=== PATIENT | female | born 1980 | race Caucasian/White ===

== ENCOUNTER 2017-01-20 08:36 | Observation (INO) | payer BC, OTHER ==
[~2017-01-20] VITALS: Ht 160 cm; Wt 81.9 kg
[~2017-01-20 08:36] MED LIST: GLIPIZIDE; METF-206 PO; PROC-14 PO
--- OUTSIDE RECORDS SUMMARY | 2017-01-20 08:41 | XMS REPORT | Referral Summary ---
Author Author [facility] Organization [facility] Address Unknown Phone Unavailable Care Team Providers Care Universal Branch Consultant Name Role Phone Alvin Fitzpatrick Primary Care Physician [phone] Encounter VC Date(s): 04/13/16 - 04/13/16 [facility], [address] [place] [address]- Discharge Disposition: 01-Home or Self Care Attending Physician: Sadia Wright APRN Admitting Physician: Sadia Wright APRN Vital Signs Most recent to 1 oldest [Reference Range]: Peripheral Pulse 88 bpm Rate [60-100 bpm] (04/13/16 10:41 AM) Blood Pressure 144/72 mmHg [90-140/60-90 mmHg] *HI* (04/13/16 10:41 AM) Problem List Condition Effective Dates Status Health Status Informant Anemia(Confirmed) 1998 Active Anxiety(Confirmed) Active Obesity(Confirmed) Active patient Type 2 diabetes Active mellitus(Confirmed) Allergies, Adverse Reactions, Alerts No Known Medication Allergies Medications Diflucan 150 mg oral tablet 150 mg 1 tabs, Oral, Daily, # 4 tabs, 0 Refill(s), Pharmacy: [facility], 1 tabs Oral Daily,x4 days Start Date: 03/16/16 Stop Date: 03/20/16 Status: Ordered glipiZIDE 5 mg oral tablet 5 mg 1 tabs, Oral, Daily, DX: E11.9, # 30 tabs, 1 Refill(s), Pharmacy: [facility], 1 tabs Oral Daily,Instr:DX: E11.9 Start Date: 03/23/16 Status: Ordered HumaLOG KwikPen 100 units/mL subcutaneous solution 15 units, SubCutaneous, TIDAC, dc novolog,DX: E11.9, # 15 mL, 0 Refill(s), Pharmacy: [facility], 15 units SubCutaneous TIDAC,x30 days,Instr:dc novolog,DX: E11.9 Start Date: 03/23/16 Stop Date: 04/22/16 Status: Ordered Insulin Pin Warren (DME) DME Item Inject insulin subq Pen Warren-per physician orders. 6 MIL. 31 GAUGE DX: E11.9, See Instructions, # 1 boxes, 1 Refill(s), Pharmacy: [facility], Inject insulin subq Pen Warren-per physician orders. 6 MIL. 31 GAUGE; DX: E11.9,... Start Date: 03/23/16 Status: Ordered Lantus Solostar Pen 100 units/mL subcutaneous solution 20 units, SubCutaneous, Bedtime (once a day), dc Levemir, try pen see if insurance will ok DX; E11.9, # 10 mL, 0 Refill(s), Pharmacy: [facility], 20 units SubCutaneous Bedtime (once a day),x30 days,Instr:dc Levemir, try pen see if insuran... Start Date: 03/23/16 Stop Date: 04/22/16 Status: Ordered Levemir 100 units/mL subcutaneous solution 20 units, SubCutaneous, Bedtime (once a day), DX: E11.9, # 10 mL, 1 Refill(s), Pharmacy: [facility], 20 units SubCutaneous Bedtime (once a day), x30 days,Instr:DX: E11.9 Start Date: 03/23/16 Stop Date: 05/22/16 Status: Ordered metFORMIN 500 mg oral tablet 500 mg 1 tabs, Oral, BID, dc order for 1000mg tab-ins. won't cover- Dx: E11.9 , # 60 tabs, 0 Refill(s), Pharmacy: [facility], 1 tabs Oral BID, Instr:dc order for 1000mg tab-ins. won't cover- ; Dx: E11.9 Start Date: 03/23/16 Status: Ordered Miscellaneous DME DME Item Freestyle Lite test strips. Box of 100. Use to test TID when taking insulin. Dx: (E11.9). Length of need: 99, See Instructions, # 1 boxes, 1 Refill( s), Pharmacy: [facility], Freestyle Lite test strips. Box of 100. Use to test TID... Start Date: 03/23/16 Status: Ordered Miscellaneous DME DME Item Freestyle lancets. Box of 100. Dx: (E11.9) Length of need: 99, See Instructions, # 1 boxes, 0 Refill(s), Pharmacy: [place] [address], Freestyle lancets. Box of 100. ; Dx: (E11.9) Length of need: 99, Supply Start Date: 08/17/15 Status: Ordered Miscellaneous DME DME Item Freestyle Lite test strips. Box of 100. Use once daily. Dx: (E11.9). Length of need: 99, See Instructions, # 1 boxes, 0 Refill(s), Pharmacy: [place] [address], Freestyle Lite test strips. Box of 100. Use once daily. Dx: (E11.9). Length o... Start Date: 08/17/15 Status: Ordered Miscellaneous DME DME Item Freestyle Lite meter to be used once daily. Dx: E11.9 Length of need : 99, See Instructions, # 1 Each, 0 Refill(s), Pharmacy: [place] [address] , Freestyle Lite meter to be used once daily. Dx: E11.9; Length of need: 99, Supply Start Date: 08/17/15 Status: Ordered NovoLOG FlexPen 100 units/mL subcutaneous solution 15 units, SubCutaneous, TIDAC, DX: E11.9, # 15 mL, 1 Refill(s), Pharmacy: [place] [address], 15 units SubCutaneous TIDAC,x30 days,Instr:DX: E11.9 Start Date: 03/23/16 Stop Date: 05/22/16 Status: Ordered Zofran ODT 4 mg oral tablet, disintegrating 4 mg 1 tabs, Oral, q6hr, as needed for nausea/vomiting, 0 Refill(s) Start Date: 03/14/16 Status: Ordered Results No data available for this section Immunizations No data available for this section Procedures Procedure Date Related Diagnosis Body Site section 04/26/09 D&C for miscarriage 2003 Social History Social History Type Response Smoking Status Never smoker Assessment and Plan No data available for this section
--- OUTSIDE RECORDS SUMMARY | 2017-01-20 08:41 | XMS REPORT | Referral Summary ---
Author Author [facility] Organization [facility] Address Unknown Phone Unavailable Care Team Providers Care Tightener Name Role Phone Alvin Fitzpatrick Primary Care Physician [phone] Encounter Date(s): 08/24/15 - 08/24/15 [facility], [address] [place] [id number] Discharge Diagnosis: Surveillance of intrauterine contraceptive device Discharge Diagnosis: Pap smear for cervical cancer screening Discharge Diagnosis: Female stress incontinence Discharge Diagnosis: [place] vaginitis Discharge Disposition: 01-Home or Self Care Attending Physician: Sadia Wright APRN Admitting Physician: Sadia Wright APRN Vital Signs Most recent to 1 oldest [Reference Range]: Peripheral Pulse 76 bpm Rate [60-100 bpm] (08/24/15 2:11 PM) Blood Pressure 126/64 mmHg [90-140/60-90 mmHg] (08/24/15 2:11 PM) Problem List Condition Effective Dates Status Health Status Informant Obesity(Confirmed) Active patient Type 2 diabetes Active mellitus(Confirmed) Allergies, Adverse Reactions, Alerts No Known Medication Allergies Medications Cranberry oral tablet 500 mg, 0 Refill(s) Start Date: 08/24/15 Status: Ordered Diflucan 150 mg oral tablet 150 mg 1 tabs, Oral, qWeek, # 2 tabs, 0 Refill(s), Pharmacy: [facility], 1 tabs Oral qWeek Start Date: 08/24/15 Stop Date: 08/31/15 Status: Ordered glipiZIDE 5 mg oral tablet 5 mg 1 tabs, Oral, Daily, # 30 tabs, 0 Refill(s), Pharmacy: [facility], 1 tabs Oral Daily Start Date: 08/17/15 Status: Ordered metFORMIN 500 mg oral tablet, extended release 1,000 mg 2 tabs, Oral, Daily, # 60 tabs, 0 Refill(s), Pharmacy: [facility], 2 tabs Oral Daily Start Date: 08/17/15 Status: Ordered Miscellaneous DME DME Item Freestyle lancets. Box of 100. Dx: (E11.9) Length of need: 99, See Instructions, # 1 boxes, 0 Refill(s), Pharmacy: [facility], Freestyle lancets. Box of 100. ; Dx: (E11.9) Length of need: 99, Supply Start Date: 08/17/15 Status: Ordered Miscellaneous DME DME Item Freestyle Lite test strips. Box of 100. Use once daily. Dx: (E11.9). Length of need: 99, See Instructions, # 1 boxes, 0 Refill(s), Pharmacy: [facility], Freestyle Lite test strips. Box of 100. Use once daily. Dx: (E11.9). Length o... Start Date: 08/17/15 Status: Ordered Miscellaneous DME DME Item Freestyle Lite meter to be used once daily. Dx: E11.9 Length of need : 99, See Instructions, # 1 Each, 0 Refill(s), Pharmacy: [facility] , Freestyle Lite meter to be used once daily. Dx: E11.9; Length of need: 99, Supply Start Date: 08/17/15 Status: Ordered Results No data available for this section Immunizations No data available for this section Procedures No data available for this section Social History Social History Type Response Smoking Status Never smoker Assessment and Plan No data available for this section
--- OUTSIDE RECORDS SUMMARY | 2017-01-20 08:41 | XMS REPORT | Referral Summary ---
Author Author [facility] Organization [facility] Address Unknown Phone Unavailable Care Team Providers Care Electrophonic Engineer Name Role Phone Alvin Fitzpatrick Primary Care Physician [phone] Encounter [facility] [id number] Date(s): 08/17/15 - 08/17/15 [facility], [address] [place] [address]- Discharge Diagnosis: Type 2 diabetes mellitus Discharge Diagnosis: Excessive weight gain Discharge Diagnosis: Stress incontinence Discharge Diagnosis: Dysuria Discharge Diagnosis: Dysuria Discharge Diagnosis: Excessive weight gain Discharge Disposition: 01-Home or Self Care Attending Physician: Anne Basilio PA-C Vital Signs Most recent to 1 oldest [Reference Range]: Temperature Tympanic 37.4 degC [36.6-38.1 degC] (08/17/15 4:17 PM) Peripheral Pulse 80 bpm Rate [60-100 bpm] (08/17/15 4:17 PM) Respiratory Rate 20 br/min [14-20 br/min] (08/17/15 4:17 PM) Blood Pressure 118/68 mmHg [90-140/60-90 mmHg] (08/17/15 4:17 PM) Problem List Condition Effective Dates Status Health Status Informant Obesity(Confirmed) Active patient Type 2 diabetes Active mellitus(Confirmed) Allergies, Adverse Reactions, Alerts No Known Medication Allergies Medications glipiZIDE 5 mg oral tablet 5 mg 1 tabs, Oral, Daily, # 30 tabs, 0 Refill(s), Pharmacy: [facility], 1 tabs Oral Daily Start Date: 08/17/15 Status: Ordered metFORMIN 500 mg oral tablet, extended release 1,000 mg 2 tabs, Oral, Daily, # 60 tabs, 0 Refill(s), Pharmacy: [facility], 2 tabs Oral Daily Start Date: 08/17/15 Status: Ordered Miscellaneous DME DME Item Freestyle lancets. Box of 100. Dx: (E11.9) Length of need: 99, See Instructions, # 1 boxes, 0 Refill(s), Pharmacy: [facility], Freestyle lancets. Box of 100. ; Dx: (E11.9) Length of need: 99, Supply Start Date: 08/17/15 Status: Ordered Miscellaneous DME DME Item Freestyle Lite test strips. Box of 100. Use once daily. Dx: (E11.9). Length of need: 99, See Instructions, # 1 boxes, 0 Refill(s), Pharmacy: [facility], Freestyle Lite test strips. Box of 100. Use once daily. Dx: (E11.9). Length o... Start Date: 08/17/15 Status: Ordered Miscellaneous DME DME Item Freestyle Lite meter to be used once daily. Dx: E11.9 Length of need : 99, See Instructions, # 1 Each, 0 Refill(s), Pharmacy: [facility] , Freestyle Lite meter to be used once daily. Dx: E11.9; Length of need: 99, Supply Start Date: 08/17/15 Status: Ordered Results Chemistry Most recent to 1 oldest [Reference Range]: Sodium Lvl [135-144 137 mEq/L mEq/L] (08/17/15 5:00 PM) Potassium Lvl 4.3 mEq/L [3.5-5.2 mEq/L] (08/17/15 5:00 PM) Chloride [99-111 104 mEq/L mEq/L] (08/17/15 5:00 PM) CO2 [22-31 mEq/L] 22 mEq/L (08/17/15 5:00 PM) AGAP [3-20] 11 (08/17/15 5:00 PM) BUN [7-19 mg/dL] 10 mg/dL (08/17/15 5:00 PM) Glucose Lvl [70-99 264 mg/dL mg/dL] *HI* (08/17/15 5:00 PM) Creatinine Lvl 0.63 mg/dL [0.57-1.11 mg/dL] (08/17/15 5:00 PM) eGFR [>60 mL/min] >60 mL/min 1 (08/17/15 5:00 PM) Calcium Lvl 9.5 mg/dL [8.9-10.5 mg/dL] (08/17/15 5:00 PM) Albumin Lvl [3.5-5.0 4.1 gm/dL gm/dL] (08/17/15 5:00 PM) Total Protein 7.4 gm/dL [6.4-8.3 gm/dL] (08/17/15 5:00 PM) Globulin [1.8-4.0 3.3 gm/dL gm/dL] (08/17/15 5:00 PM) ALT [0-55 U/L] 21 U/L (08/17/15 5:00 PM) AST [5-34 U/L] 16 U/L (08/17/15 5:00 PM) Alk Phos [40-150 106 U/L U/L] (08/17/15 5:00 PM) Bili Total [0.2-1.2 0.4 mg/dL mg/dL] (08/17/15 5:00 PM) TSH with Reflex Free 1.39 T4 [0.35-4.94] (08/17/15 5:00 PM) Hgb A1c [4.1-5.6 %] 11.5 % *HI* (08/17/15 5:00 PM) eAvg Glucose 283.4 mg/dL (08/17/15 5:00 PM) 1Result Comment: Multiply eGFR results by 1.21 for race. Urinalysis Most recent to 1 oldest [Reference Range]: UA Color Yellow (08/17/15 5:02 PM) UA Appear Clear (08/17/15 5:02 PM) UA pH [5.0-8.0] 5.5 (08/17/15 5:02 PM) UA Leuk Est Negative [Negative] (08/17/15 5:02 PM) UA Nitrite Negative [Negative] (08/17/15 5:02 PM) UA Protein Negative [Negative] (08/17/15 5:02 PM) UA Glucose Pos 3+ [Negative] *ABN* (08/17/15 5:02 PM) UA Ketones Pos 3+ [Negative] *ABN* (08/17/15 5:02 PM) UA Urobilinogen 0.2 mg/dL [<1.0 mg/dL] (08/17/15 5:02 PM) UA Bili [Negative] Negative (08/17/15 5:02 PM) UA Blood [Negative] Negative (08/17/15 5:02 PM) UA Spec Grav 1.039 [1.003-1.030] *HI* (08/17/15 5:02 PM) Type Clean Catch (08/17/15 5:02 PM) Immunizations No data available for this section Procedures Procedure Date Related Diagnosis Body Site Collection of venous blood by venipuncture 08/17/15 Social History Social History Type Response Smoking Status Never smoker Assessment and Plan Extracted from: Title: Office Visit Note Author: Anne Basilio PA-C Date: 08/17/15 Assessment/Plan Dysuria, Dysuria Will check UA today, and if UTI, will send in abx. Will notify pt of results. Ordered: Office Visit Level 4 Est 57225 Excessive weight gain, Excessive weight gain Will also check TSH today. She thinks that the level was off in the past. Will treat if needed. Ordered: Office Visit Level 4 Est 23530 Stress incontinence I gave her handouts to try Kegel exercises. I think if we get her diabetes under control, she may not have as many issues with this. Again, will check UA today. Ordered: Office Visit Level 4 Est 22276 Type 2 diabetes mellitus I spent about 30 minutes discussing with the pt the importance of getting her diabetes undercontrol. She initiallywanted to be referred to an utility system operator because that is whoshe has seen before. D/w her that we canstart the work up here, and ifwe have trouble, then we can send her. Will start with labfor a starting point. Will start with Metformin extended release totry andprevent stomach upset. She prefers taking the 500mg tabs, soshe will take 2 of these once a day. Will alsotry Glipizide. I don't know if thiswill work for her, but will give it a try. Will also call in glucometer for her, and just have her check fasting sugar for now. I had a reynoso discussion with her that we can give her all the medications, but she needs to take her health seriously, and actuallytake the medicine. I advised that she needs to start exercising and watching her diet.We can send her to counseling again ifwe need to, but she already knows the diet she needs to have. Try cutting out sugars, and cutting back on carbs for now. Also try cutting back portion sizes. Will call with results, and will definitely need follow up andmost likely further medication changes. Pt voices understanding. Ordered: Comprehensive Metabolic Panel Hemoglobin A1c Office Visit Level 4 Est 21258 TSH with Reflex Free T4 Urinalysis with Culture if Indicated Orders: [facility] [facility] Equipment Rx, DME Item Freestyle lancets. Box of 100. Dx: (E11.9) Length of need: 99, See Instructions, # 1 boxes, 0 Refill(s), Pharmacy: [facility], Freestyle lancets. Box of 100. ; Dx: (E11.9) Length of need: 99, Supply Durable Medical Equipment Rx, DME Item Freestyle Lite test strips. Box of 100. Use once daily. Dx: (E11.9). Length of need: 99, See Instructions, # 1 boxes, 0 Refill(s), Pharmacy: [facility], Freestyle Lite test strips. Box of 100. Use once daily. Dx: (E11.9). Length o... Durable Medical Equipment Rx, DME Item Freestyle Lite meter to be used once daily. Dx: E11.9 Length of need: 99, See Instructions, # 1 Each, 0 Refill(s), Pharmacy: [facility], Freestyle Lite meter to be used once daily. Dx : E11.9; Length of need: 99, Supply glipiZIDE, 5 mg 1 tabs, Oral, Daily, # 30 tabs, 0 Refill(s), Pharmacy: [facility], 1 tabs Oral Daily metFORMIN, 1,000 mg 2 tabs, Oral, Daily, # 60 tabs, 0 Refill(s), Pharmacy: [facility], 2 tabs Oral Daily Extracted from: Title: Ambulatory Patient Education Author: Anne Basilio PA-C Date : 08/17/15 Family Medicine Kegel Exercises The goal of Kegel exercises is to isolate and exercise your pelvic floor muscles. These muscles act as a hammock that supports the rectum, vagina, small intestine, and uterus. As the muscles weaken, the hammock sags and these organs are displaced from their normal positions. Kegel exercises can strengthen your pelvic floor muscles and help you to improve bladder and bowel control, improve sexual response, and help reduce many problems and some discomfort during . Kegel exercises can be done anywhere and at any time. HOW TO PERFORM KEGEL EXERCISES 1. Locate your pelvic floor muscles. To do this, squeeze (contract) the muscles that you use when you try to stop the flow of urine. You will feel a tightness in the vaginal area (women) and a tight lift in the rectal area (men and women). 2. When you begin, contract your pelvic muscles tight for 25 seconds, then relax them for 25 seconds. This is one set. Do 45 sets with a short pause in between. 3. Contract your pelvic muscles for 810 seconds, then relax them for 8 10 seconds. Do 45 sets. If you cannot contract your pelvic muscles for 8 10 seconds, try 57 seconds and work your way up to 810 seconds. Your goal is 45 sets of 10 contractions each day. Keep your stomach, buttocks, and legs relaxed during the exercises. Perform sets of both short and long contractions. Vary your positions. Perform these contractions 34 times per day. Perform sets while you are: Lying in bed in the morning. Standing at lunch. Sitting in the late afternoon. Lying in bed at night. You should do 4050 contractions per day. Do not perform more Kegel exercises per day than recommended. Overexercising can cause muscle fatigue. Continue these exercises for for at least 1520 weeks or as directed by your caregiver. Document Released: 09/16/2013 Document Reviewed: 09/16/2013 ExitCare Patient Information 2015 [employer]. This information is not intended to replace advice given to you by your health care provider. Make sure you discuss any questions you have with your health care provider. No follow up information was provided.
--- OUTSIDE RECORDS SUMMARY | 2017-01-20 08:41 | XMS REPORT | Referral Summary ---
Author Author [facility] Organization [facility] Address Unknown Phone Unavailable Care Team Providers Care Merchandise Planner Name Role Phone Alvin Fitzpatrick Primary Care Physician [phone] Encounter [facility] Date(s): 10/28/15 - 10/28/15 [facility] [address] [place] [address] [place] [address] Discharge Diagnosis: Urinary, incontinence, stress female Discharge Diagnosis: Type II diabetes mellitus Discharge Diagnosis: Obesity Discharge Diagnosis: Yeast infection of the vagina Discharge Diagnosis: Urinary incontinence Discharge Disposition: -Home or Self Care Attending Physician: Hiram Wright JR, MD Admitting Physician: Hiram Wright JR, MD Referring Physician: Marquise Fitzpatrick MD Vital Signs Most recent to 1 oldest [Reference Range]: Peripheral Pulse 90 bpm Rate [60-100 bpm] (10/28/15 4:03 PM) Blood Pressure 122/80 mmHg [90-140/60-90 mmHg] (10/28/15 4:03 PM) Problem List Condition Effective Dates Status Health Status Informant Anemia(Confirmed) 1998 Active Anxiety(Confirmed) Active Obesity(Confirmed) Active patient Type 2 diabetes Active mellitus(Confirmed) Allergies, Adverse Reactions, Alerts No Known Medication Allergies Medications Cranberry oral tablet 500 mg, 0 Refill(s) Start Date: 08/24/15 Status: Ordered glipiZIDE 5 mg oral tablet 5 mg 1 tabs, Oral, Daily, # 30 tabs, 0 Refill(s), Pharmacy: [facility], 1 tabs Oral Daily Start Date: 09/20/15 Status: Ordered metFORMIN 500 mg oral tablet, extended release 1,000 mg 2 tabs, Oral, Daily, # 60 tabs, 0 Refill(s), Pharmacy: [facility], 2 tabs Oral Daily Start Date: 09/20/15 Status: Ordered Miscellaneous DME DME Item Freestyle lancets. Box of 100. Dx: (E11.9) Length of need: 99, See Instructions, # 1 boxes, 0 Refill(s), Pharmacy: [facility]28, Freestyle lancets. Box of 100. ; Dx: (E11.9) Length of need: 99, Supply Start Date: 08/17/15 Status: Ordered Miscellaneous DME DME Item Freestyle Lite test strips. Box of 100. Use once daily. Dx: (E11.9). Length of need: 99, See Instructions, # 1 boxes, 0 Refill(s), Pharmacy: [facility], Freestyle Lite test strips. Box of 100. Use once daily. Dx: (E11.9). Length o... Start Date: 08/17/15 Status: Ordered Miscellaneous DME DME Item Freestyle Lite meter to be used once daily. Dx: E11.9 Length of need : 99, See Instructions, # 1 Each, 0 Refill(s), Pharmacy: [place] [address] , Freestyle Lite meter to be used once daily. Dx: E11.9; Length of need: 99, Supply Start Date: 08/17/15 Status: Ordered oxybutynin 5 mg oral tablet 5 mg 1 tabs, Oral, TID, # 180 tabs, 3 Refill(s), Pharmacy: [facility], 1 tabs Oral TID Start Date: 10/28/15 Status: Ordered Results Urinalysis Most recent to 1 oldest [Reference Range]: UA Color Yellow (10/28/15 4:00 PM) UA Appear Clear (10/28/15 4:00 PM) UA pH [5.0-8.0] 5.0 (10/28/15 4:00 PM) UA Leuk Est Trace [Negative] *ABN* (10/28/15 4:00 PM) UA Nitrite Negative [Negative] (10/28/15 4:00 PM) UA Protein Negative [Negative] (10/28/15 4:00 PM) UA Glucose Pos 2+ [Negative] *ABN* (10/28/15 4:00 PM) UA Ketones Pos 3+ 1 [Negative] (10/28/15 4:00 PM) UA Urobilinogen 0.2 mg/dL [<=1.0 mg/dL] (10/28/15 4:00 PM) UA Bili [Negative] Negative (10/28/15 4:00 PM) UA Blood [Negative] Trace *ABN* (10/28/15 4:00 PM) UA Spec Grav 1.010 [1.003-1.030] (10/28/15 4:00 PM) Type Clean Catch (10/28/15 4:00 PM) UA WBC [0-4] 5-10 *ABN* (10/28/15 4:00 PM) UA RBC [0-2] 2-5 (10/28/15 4:00 PM) Epithelial Cells 0-2 (10/28/15 4:00 PM) UA Bacteria Occasional *ABN* (10/28/15 4:00 PM) 1Result Comment: Result verified by repeat analysis and called to Cristhian by [facility] 16:10 Immunizations No data available for this section Procedures Procedure Date Related Diagnosis Body Site section 04/26/09 D&C for miscarriage 2003 Social History Social History Type Response Smoking Status Never smoker Assessment and Plan Extracted from: Title: Ambulatory Patient Education Author: Hiram Wright JR, MD Date : 10/28/15 Follow Up With: Where: When: Marquise Fitzpatrick [address] [place] [address] Drive; [place] [address] Business (1) Within 3 to 5 days Comments: Follow Up With: Where: When: Sadia Wright In 6 weeks 12/09/2015 Comments: Extracted from: Title: Office Visit Note Author: Hiram Wright JR, MD Date: 10/28/15 Assessment/Plan 1.Urinary, incontinence, stress female Patient instructedhow to do Kegel 's pelvic floor exercises 4 times an hour while awake. Discontinuecranberry pill. Patient will be started onOxybutynin 5 mg 3 times a day. Prescription called. Recheck in my office in 6 weeks Patient was alsocounseled aboutavoidingcaffeine and highly spiced and highly acidic food. 2.Type II diabetes mellitus Patient is being sent to the immediate care unitformanagementof type II diabetes mellitus Urinalysisdone today showed3+ kitten on the urinalysis 3.Obesity Patient said she had lost 10 poundsalready lately 4.Yeast infection of the vagina Continue [id number] mg once a week for the yeast infection of the vagina. Ordered: Office Visit Level 4 New [address] Urinary incontinence Orders: oxybutynin, 5 mg 1 tabs, Oral, TID, # 180 tabs, 3 Refill(s), Pharmacy : [facility], 1 tabs Oral TID Extracted from: Title: Ketones Author: Cristhian Castaneda RN Date: 10/28/15 Received call from lab - 3+ ketones in Urine. I notified of this finding.
--- OUTSIDE RECORDS SUMMARY | 2017-01-20 08:41 | XMS REPORT | Referral Summary ---
Author Author [facility], Family Medicine Organization [facility], Family [facility] Address Unknown Phone Unavailable Care Team Providers Care New Accounts Representative Name Role Phone Alvin Fitzpatrick Primary Care Physician [phone] Encounter VC Date(s): 08/30/15 - 08/30/15 [facility], [address] [place] [id number] Discharge Diagnosis: Contraceptive management Discharge Disposition: 01-Home or Self Care Attending Physician: Sadia Wright APRN Admitting Physician: Sadia Wright APRN Vital Signs Most recent to 1 oldest [Reference Range]: Peripheral Pulse 76 bpm Rate [60-100 bpm] (08/30/15 8:41 AM) Blood Pressure 126/64 mmHg [90-140/60-90 mmHg] (08/30/15 8:41 AM) Problem List Condition Effective Dates Status Health Status Informant Anemia(Confirmed) 1998 Active Anxiety(Confirmed) Active Obesity(Confirmed) Active patient Type 2 diabetes Active mellitus(Confirmed) Allergies, Adverse Reactions, Alerts No Known Medication Allergies Medications Cranberry oral tablet 500 mg, 0 Refill(s) Start Date: 08/24/15 Status: Ordered Diflucan 150 mg oral tablet 150 mg 1 tabs, Oral, qWeek, # 2 tabs, 0 Refill(s), Pharmacy: [facility], 1 tabs Oral qWeek Start Date: 08/24/15 Stop Date: 08/31/15 Status: Ordered glipiZIDE 5 mg oral tablet 5 mg 1 tabs, Oral, Daily, # 30 tabs, 0 Refill(s), Pharmacy: [facility], 1 tabs Oral Daily Start Date: 08/17/15 Status: Ordered metFORMIN 500 mg oral tablet, extended release 1,000 mg 2 tabs, Oral, Daily, # 60 tabs, 0 Refill(s), Pharmacy: [facility], 2 tabs Oral Daily Start Date: 08/17/15 Status: Ordered Miscellaneous DME DME Item Freestyle lancets. Box of 100. Dx: (E11.9) Length of need: 99, See Instructions, # 1 boxes, 0 Refill(s), Pharmacy: [facility], Freestyle lancets. Box of 100. ; Dx: (E11.9) Length of need: 99, Supply Start Date: 08/17/15 Status: Ordered Miscellaneous DME DME Item Freestyle Lite test strips. Box of 100. Use once daily. Dx: (E11.9). Length of need: 99, See Instructions, # 1 boxes, 0 Refill(s), Pharmacy: [facility], Freestyle Lite test strips. Box of 100. Use once daily. Dx: (E11.9). Length o... Start Date: 08/17/15 Status: Ordered Miscellaneous DME DME Item Freestyle Lite meter to be used once daily. Dx: E11.9 Length of need : 99, See Instructions, # 1 Each, 0 Refill(s), Pharmacy: [facility] , Freestyle Lite meter to be used once daily. Dx: E11.9; Length of need: 99, Supply Start Date: 08/17/15 Status: Ordered Results Chemistry Most recent to 1 oldest [Reference Range]: U Beta hCG Ql Negative [Negative] (08/30/15 8:30 AM) Immunizations No data available for this section Procedures Procedure Date Related Diagnosis Body Site section 04/26/09 D&C for miscarriage 2003 Social History Social History Type Response Smoking Status Never smoker Assessment and Plan No data available for this section
--- OUTSIDE RECORDS SUMMARY | 2017-01-20 08:41 | XMS REPORT | Referral Summary ---
Author Author [facility], [facility] Medicine Organization [facility], [facility] Address Unknown Phone Unavailable Care Team Providers Care Acting Section Chief Name Role Phone Alvin Fitzpatrick Primary Care Physician [phone] Encounter VC Date(s): 03/16/16 - 03/16/16 [facility], [address] [place] [id number] Discharge Disposition: 01-Home or Self Care Attending Physician: Marquise Fitzpatrick MD Admitting Physician: Marquise Fitzpatrick MD Vital Signs Most recent to 1 oldest [Reference Range]: Blood Pressure 126/74 mmHg [90-140/60-90 mmHg] (03/16/16 11:11 AM) Problem List Condition Effective Dates Status Health Status Informant Anemia(Confirmed) 1998 Active Anxiety(Confirmed) Active Obesity(Confirmed) Active patient Type 2 diabetes Active mellitus(Confirmed) Allergies, Adverse Reactions, Alerts No Known Medication Allergies Medications Diflucan 150 mg oral tablet 150 mg 1 tabs, Oral, Daily, # 4 tabs, 0 Refill(s), Pharmacy: [facility], 1 tabs Oral Daily,x4 days Start Date: 03/16/16 Stop Date: 03/20/16 Status: Ordered glipiZIDE 5 mg oral tablet 5 mg 1 tabs, Oral, Daily, # 30 tabs, 2 Refill(s), Pharmacy: [facility], 1 tabs Oral Daily Start Date: 10/31/15 Status: Ordered Insulin Pin [place] (DME) DME Item Inject insulin subq per physician orders. 6 MIL. 31 GAUGE DX: E11.9, See Instructions, # 1 Each, 0 Refill(s), Pharmacy: [facility], Inject insulin subq per physician orders. 6 MIL. 31 GAUGE; DX: E11.9, Supply Start Date: 11/01/15 Status: Ordered Levemir 10 units, SubCutaneous, Bedtime (once a day), 0 Refill(s) Start Date: 03/16/16 Status: Ordered metFORMIN 1000 mg oral tablet, extended release 1,000 mg 1 tabs, Oral, Daily, # 30 tabs, 3 Refill(s), Pharmacy: [facility] [id number], 1 tabs Oral Daily Start Date: 10/31/15 Status: Ordered Miscellaneous DME DME Item Freestyle Lite test strips. Box of 100. Use to test TID when taking insulin. Dx: (E11.9). Length of need: 99, See Instructions, # 1 boxes, 3 Refill( s), Pharmacy: [facility] [address], Freestyle Lite test strips. Box of 100. Use to test TID... Start Date: 03/16/16 Status: Ordered Miscellaneous DME DME Item Freestyle lancets. Box of 100. Dx: (E11.9) Length of need: 99, See Instructions, # 1 boxes, 0 Refill(s), Pharmacy: [facility] [address], Freestyle lancets. Box of 100. ; Dx: (E11.9) Length of need: 99, Supply Start Date: 08/17/15 Status: Ordered Miscellaneous DME DME Item Freestyle Lite test strips. Box of 100. Use once daily. Dx: (E11.9). Length of need: 99, See Instructions, # 1 boxes, 0 Refill(s), Pharmacy: [place] [facility] [id number], Freestyle Lite test strips. Box of 100. Use once daily. Dx: (E11.9). Length o... Start Date: 08/17/15 Status: Ordered Miscellaneous DME DME Item Freestyle Lite meter to be used once daily. Dx: E11.9 Length of need : 99, See Instructions, # 1 Each, 0 Refill(s), Pharmacy: [facility] [address] , Freestyle Lite meter to be used once daily. Dx: E11.9; Length of need: 99, Supply Start Date: 08/17/15 Status: Ordered NovoLOG FlexPen 4 units, SubCutaneous, TIDAC, 0 Refill(s) Start Date: 03/16/16 Status: Ordered Zofran ODT 4 mg oral [...]
--- OUTSIDE RECORDS SUMMARY | 2017-01-20 08:41 | XMS REPORT | Referral Summary ---
Author Author [facility], [facility] Medicine Organization [facility] Address Unknown Phone Unavailable Care Team Providers Care Yarn Examiner Skeins Name Role Phone Alvin Fitzpatrick Primary Care Physician [phone] Encounter VC Date(s): 03/14/16 - 03/14/16 [facility], [address] [place] [address]- Discharge Disposition: 01-Home or Self Care Attending Physician: Marquise Fitzpatrick MD Admitting Physician: Marquise Fitzpatrick MD Vital Signs Most recent to 1 oldest [Reference Range]: Blood Pressure 114/70 mmHg [90-140/60-90 mmHg] (03/14/16 2:21 PM) Problem List Condition Effective Dates Status Health Status Informant Anemia(Confirmed) 1998 Active Anxiety(Confirmed) Active Obesity(Confirmed) Active patient Type 2 diabetes Active mellitus(Confirmed) Allergies, Adverse Reactions, Alerts No Known Medication Allergies Medications glipiZIDE 5 mg oral tablet 5 mg 1 tabs, Oral, Daily, # 30 tabs, 2 Refill(s), Pharmacy: [id number], 1 tabs Oral Daily Start Date: 10/31/15 Status: Ordered Insulin [place] (DME) DME Item Inject insulin subq per physician orders. 6 MIL. 31 GAUGE DX: E11.9, See Instructions, # 1 Each, 0 Refill(s), Pharmacy: [facility], Inject insulin subq per physician orders. 6 MIL. 31 GAUGE; DX: E11.9, Supply Start Date: 11/01/15 Status: Ordered metFORMIN 1000 mg oral tablet, extended release 1,000 mg 1 tabs, Oral, Daily, # 30 tabs, 3 Refill(s), Pharmacy: [facility], 1 tabs Oral Daily Start Date: 10/31/15 Status: Ordered Miscellaneous DME DME Item Freestyle lancets. Box of 100. Dx: (E11.9) Length of need: 99, See Instructions, # 1 boxes, 0 Refill(s), Pharmacy: [facility], Freestyle lancets. Box of 100. ; Dx: (E11.9) Length of need: 99, Supply Start Date: 08/17/15 Status: Ordered Miscellaneous DME DME Item Freestyle Lite test strips. Box of 100. Use once daily. Dx: (E11.9). Length of need: 99, See Instructions, # 1 boxes, 0 Refill(s), Pharmacy: [facility], Freestyle Lite test strips. Box of 100. Use once daily. Dx: (E11.9). Length o... Start Date: 08/17/15 Status: Ordered Miscellaneous DME DME Item Freestyle Lite meter to be used once daily. Dx: E11.9 Length of need : 99, See Instructions, # 1 Each, 0 Refill(s), Pharmacy: [facility] , Freestyle Lite meter to be used once daily. Dx: E11.9; Length of need: 99, Supply Start Date: 08/17/15 Status: Ordered Zofran ODT 4 mg oral tablet, disintegrating 4 mg 1 tabs, Oral, q6hr, as needed for nausea/vomiting, 0 Refill(s) Start Date: 03/14/16 Status: Ordered Results Chemistry Most recent to 1 oldest [Reference Range]: Sodium Venous 139 mmol/L [136-145 mmol/L] (03/14/16 3:32 PM) Potassium Venous 3.4 mmol/L 1 [3.5-5.1 mmol/L] *LOW* (03/14/16 3:32 PM) Calcium Ionized 1.16 mmol/L Venous [1.10-1.30 (03/14/16 3:32 PM) mmol/L] Total CO2 Venous 23 mmol/L [24-29 mmol/L] *LOW* (03/14/16 3:32 PM) Glucose Venous 282 mg/dL [70-100 mg/dL] *HI* (03/14/16 3:32 PM) BUN Venous [8-26] <3 *LOW* (03/14/16 3:32 PM) Creatinine Venous 0.4 mg/dL [0.6-1.2 mg/dL] *LOW* (03/14/16 3:32 PM) Venous CL [98-109 101 mmol/L mmol/L] (03/14/16 3:32 PM) 1Result Comment: This test was performed on a whole blood specimen. The presence or absence of hemolysis cannot be assessed. Hemolysis can falsely elevate potassium levels. Normals are for venous specimens only. Immunizations No data available for this section Procedures Procedure Date Related Diagnosis Body Site Collection of venous blood by venipuncture 03/14/16 section 04/26/09 D&C for miscarriage 2003 Social History Social History Type Response Smoking Status Never smoker Assessment and Plan Extracted from: Title: Ambulatory Patient Education Author: Marquise Fitzpatrick MD Date: 03/14 Emergency Medicine Abdominal Pain Many things can cause abdominal pain. Usually, abdominal pain is not caused by a disease and will improve without treatment. It can often be observed and treated at home. Your health care provider will do a physical exam and possibly order blood tests and X-rays to help determine the seriousness of your pain. However, in many cases, more time must pass before a clear cause of the pain can be found. Before that point, your health care provider may not know if you need more testing or further treatment. HOME CARE INSTRUCTIONS Monitor your abdominal pain for any changes. The following actions may help to alleviate any discomfort you are experiencing: Only take ddmo-alr-yrlqzli or prescription medicines as directed by your health care provider. Do not take laxatives unless directed to do so by your health care provider. Try a clear liquid diet (broth, tea, or water) as directed by your health care provider. Slowly move to a bland diet as tolerated. SEEK MEDICAL CARE IF: You have unexplained abdominal pain. You have abdominal pain associated with nausea or diarrhea. You have pain when you urinate or have a bowel movement. You experience abdominal pain that wakes you in the night. You have abdominal pain that is worsened or improved by eating food. You have abdominal pain that is worsened with eating fatty foods. You have a fever. SEEK IMMEDIATE MEDICAL CARE IF: Your pain does not go away within 2 hours. You keep throwing up (vomiting). Your pain is felt only in portions of the abdomen, such as the right side or the left lower portion of the abdomen. You pass bloody or black tarry stools. MAKE SURE YOU: Understand these instructions. Will watch your condition. Will get help right away if you are not doing well or get worse. This information is not intended to replace advice given to you by your health care provider. Make sure you discuss any questions you have with your health care provider. Document Released: 07/10/2006 Document Revised: 10/05/2014 Document Reviewed: [facility] Patient Information 2015 [employer]. Family Medicine Blood Glucose Monitoring Monitoring your blood glucose (also know as blood sugar) helps you to manage your diabetes. It also helps you and your health care provider monitor your diabetes and determine how well your treatment plan is working. WHY SHOULD YOU MONITOR YOUR BLOOD GLUCOSE? It can help you understand how food, exercise, and medicine affect your blood glucose. It allows you to know what your blood glucose is at any given moment. You can quickly tell if you are having low blood glucose (hypoglycemia) or high blood glucose (hyperglycemia). It can help you and your health care provider know how to adjust your medicines. It can help you understand how to manage an illness or adjust medicine for exercise. WHEN SHOULD YOU TEST? Your health care provider will help you decide how often you should check your blood glucose. This may depend on the type of diabetes you have, your diabetes control, or the types of medicines you are taking. Be sure to write down all of your blood glucose readings so that this information can be reviewed with your health care provider. See below for examples of testing times that your health care provider may suggest. Type 1 Diabetes Test at least 2 times per day if your diabetes is well controlled, if you are using an insulin pump, or if you perform multiple daily injections. If your diabetes is not well controlled or if you are sick, you may need to test more often. It is a good idea to also test: Before every insulin injection. Before and after exercise. Between meals and 2 hours after a meal. Occasionally between 2:00 a.m. and 3:00 a.m. Type 2 Diabetes If you are taking insulin, test at least 2 times per day. However, it is best to test before every insulin injection. If you take medicines by mouth (orally), test 2 times a day. If you are on a controlled diet, test once a day. If your diabetes is not well controlled or if you are sick, you may need to monitor more often. HOW TO MONITOR YOUR BLOOD GLUCOSE Supplies Needed Blood glucose meter. Test strips for your meter. Each meter has its own strips. You must use the strips that go with your own meter. A pricking needle (lancet). A device that holds the lancet (lancing device). A journal or log book to write down your results. Procedure Wash your hands with soap and water. Alcohol is not preferred. Prick the side of your finger (not the tip) with the lancet. Gently milk the finger until a small drop of blood appears. Follow the instructions that come with your meter for inserting the test strip, applying blood to the strip, and using your blood glucose meter. Other Areas to Get Blood for Testing Some meters allow you to use other areas of your body (other than your finger) to test your blood. These areas are called alternative sites. The most common alternative sites are: The forearm. The thigh. The back area of the lower leg. The palm of the hand. The blood flow in these areas is slower. Therefore, the blood glucose values you get may be delayed, and the numbers are different from what you would get from your fingers. Do not use alternative sites if you think you are having hypoglycemia. Your reading will not be accurate. Always use a finger if you are having hypoglycemia. Also, if you cannot feel your lows (hypoglycemia unawareness), always use your fingers for your blood glucose checks. ADDITIONAL TIPS FOR GLUCOSE MONITORING Do not reuse lancets. Always carry your supplies with you. All blood glucose meters have a 24-hour "hotline" number to call if you have questions or need help. Adjust (calibrate) your blood glucose meter with a control solution after finishing a few boxes of strips. BLOOD GLUCOSE RECORD KEEPING It is a good idea to keep a daily record or log of your blood glucose readings. Most glucose meters, if not all, keep your glucose records stored in the meter. Some meters come with the ability to download your records to your home computer. Keeping a record of your blood glucose readings is especially helpful if you are wanting to look for patterns. Make notes to go along with the blood glucose readings because you might forget what happened at that exact time. Keeping good records helps you and your health care provider to work together to achieve good diabetes management. This information is not intended to replace advice given to you by your health care provider. Make sure you discuss any questions you have with your health care provider. Document Released: 10/02/2004 Document Revised: 07/19/2015 Document Reviewed: [employer] Patient Information 2015 [employer]. Diabetes and Standards of Medical Care Diabetes is complicated. You may find that your diabetes team includes a dietitian, nurse, outreach educator, eye doctor, and more. To help everyone know what is going on and to help you get the care you deserve, the following schedule of care was developed to help keep you on track. Below are the tests, exams, vaccines, medicines, education, and plans you will need. HbA1c test This test shows how well you have controlled your glucose over the past 23 months. It is used to see if your diabetes management plan needs to be adjusted. It is performed at least 2 times a year if you are meeting treatment goals. It is performed 4 times a year if therapy has changed or if you are not meeting treatment goals. Blood pressure test This test is performed at every routine medical visit. The goal is less than 140/90 mm Hg for most people, but 130/80 mm Hg in some cases. Ask your health care provider about your goal. Dental exam Follow up with the dentist regularly. Eye exam If you are diagnosed with type 1 diabetes as a child, get an exam upon reaching the age of 10 years or older and having had diabetes for 35 years. Yearly eye exams are recommended after that initial eye exam. If you are diagnosed with type 1 diabetes as an adult, get an exam within 5 years of diagnosis and then yearly. If you are diagnosed with type 2 diabetes, get an exam as soon as possible after the diagnosis and then yearly. Foot care exam Visual foot exams are performed at every routine medical visit. The exams check for cuts, injuries, or other problems with the feet. You should have a complete foot exam performed every year. This exam includes an inspection of the structure and skin of your feet, a check of the pulses in your feet, and a check of the sensation in your feet. Type 1 diabetes: The first exam is performed 5 years after diagnosis. Type 2 diabetes: The first exam is performed at the time of diagnosis. Check your feet nightly for cuts, injuries, or other problems with your feet. Tell your health care provider if anything is not healing. Kidney function test (urine microalbumin) This test is performed once a year. Type 1 diabetes: The first test is performed 5 years after diagnosis. Type 2 diabetes: The first test is performed at the time of diagnosis. A serum creatinine and estimated glomerular filtration rate (eGFR) test is done once a year to assess the level of chronic kidney disease (CKD), if present. Lipid profile (cholesterol, HDL, LDL, triglycerides) Performed every 5 years for most people. The goal for LDL is less than 100 mg/dL. If you are at high risk, the goal is less than 70 mg/dL. The goal for HDL is 40 mg/dL50 mg/dL for men and 50 mg/dL60 mg/dL for women. An HDL cholesterol of 60 mg/dL or higher gives some protection against heart disease. The goal for triglycerides is less than 150 mg/dL. Immunizations The flu (influenza) vaccine is recommended yearly for every person 6 months of age or older who has diabetes. The pneumonia (pneumococcal) vaccine is recommended for every person 2 years of age or older who has diabetes. Adults 65 years of age or older may receive the pneumonia vaccine as a series of two separate shots. The hepatitis B vaccine is recommended for adults shortly after they have been diagnosed with diabetes. The Tdap (tetanus, diphtheria, and pertussis) vaccine should be given: According to normal childhood vaccination schedules, for children. Every 10 years, for adults who have diabetes. Diabetes self-management education Education is recommended at diagnosis and ongoing as needed. Treatment plan Your treatment plan is reviewed at every medical visit. This information is not intended to replace advice given to you by your health care provider. Make sure you discuss any questions you have with your health care provider. Document Released: 07/28/2010 Document Revised: 07/19/2015 Document Reviewed: [facility] Patient Information 2015 [employer] [facility]. Diabetic Ketoacidosis Diabetic ketoacidosis (DKA) is a life-threatening complication of type 1 diabetes. It must be quickly recognized and treated. Treatment requires hospitalization. CAUSES When there is no insulin in the body, glucose (sugar) cannot be used, and the body breaks down fat for energy. When fat breaks down, acids (ketones) build up in the blood. Very high levels of glucose and high levels of acids lead to severe loss of body fluids (dehydration) and other dangerous chemical changes. This stresses your vital organs and can cause coma or . SIGNS AND SYMPTOMS Tiredness (fatigue). Weight loss. Excessive thirst. Ketones in your urine. Light-headedness. Fruity or sweet smelling breath. Excessive urination. Visual changes. Confusion or irritability. Nausea or vomiting. Rapid breathing. Stomachache or abdominal pain. DIAGNOSIS Your health care provider will diagnose DKA based on your history, physical exam , and blood tests. The health care provider will check to see if you have another illness that caused you to go into DKA. Most of this will be done quickly in an emergency room. TREATMENT Fluid replacement to correct dehydration. Insulin. Correction of electrolytes, such as potassium and sodium. Antibiotic medicines. PREVENTION Always take your insulin. Do not skip your insulin injections. If you are sick, treat yourself quickly. Your body often needs more insulin to fight the illness. Check your blood glucose regularly. Check urine ketones if your blood glucose is greater than 240 milligrams per deciliter (mg/dL). Do not use outdated () insulin. If your blood glucose is high, drink plenty of fluids. This helps flush out ketones. HOME CARE INSTRUCTIONS If you are sick, follow the advice of your health care provider. To prevent dehydration, drink enough water and fluids to keep your urine clear or pale yellow. If you cannot eat, alternate between drinking fluids with sugar (soda, juices, flavored gelatin) and salty fluids (broth, bouillon). If you can eat, follow your usual diet and drink sugar-free liquids ( water, diet drinks). Always take your usual dose of insulin. If you cannot eat or if your glucose is getting too low, call your health care provider for further instructions. Continue to monitor your blood or urine ketones every 34 hours around the clock. Set your alarm clock or have someone wake you up. If you are too sick , have someone test it for you. Rest and avoid exercise. SEEK MEDICAL CARE IF: You have a fever. You have ketones in your urine, or your blood glucose is higher than a level your health care provider suggests. You may need extra insulin. Call your health care provider if you need advice on adjusting your insulin. You cannot drink at least a tablespoon (15 mL) of fluid every 1520 minutes. You have been vomiting for more than 2 hours. You have symptoms of DKA: Fruity smelling breath. Breathing faster or slower. Becoming very sleepy. SEEK IMMEDIATE MEDICAL CARE IF: You have signs of dehydration: Decreased urination. Increased thirst. Dry skin and mouth. Light-headedness. Your blood glucose is very high (as advised by your health care provider ) twice in a row. You faint. You have chest pain or trouble breathing. You have a sudden, severe headache. You have sudden weakness in one arm or one leg. You have sudden trouble speaking or swallowing. You have vomiting or diarrhea that is getting worse after 3 hours. You have abdominal pain. MAKE SURE YOU: Understand these instructions. Will watch your condition. Will get help right away if you are not doing well or get worse. This information is not intended to replace advice given to you by your health care provider. Make sure you discuss any questions you have with your health care provider. Document Released: 09/27/2001 Document Revised: 10/05/2014 Document Reviewed: [facility] Patient Information 2015 [employer]. No follow up information was provided. Extracted from: Title: Office Visit Note Author: Marquise Fitzpatrick MD Date: 03/14/16 Assessment/Plan Abdominal pain Will set patient up for a Gallbladder sono. Ordered: Office Visit Level 4 Est 84099 Gallbladder DKA (diabetic ketoacidoses) Patient is to check blood sugars fasting and 2hr. after a meal. Ordered: Office Visit Level 4 Est 47023 Nausea May continue with the Zofran Ordered: Office Visit Level 4 Est 46595 Obesity Ordered: Office Visit Level 4 Est 30644 Type 2 diabetes mellitus Will recheck patient Saturday and start Levemir 10 units at bedtime. Discuss case with Dr. Delgado. Ordered: Office Visit Level 4 Est 86534
--- OUTSIDE RECORDS SUMMARY | 2017-01-20 08:41 | XMS REPORT | Continuity of Care Document ---
Author Author [facility] Organization [facility] Address Unknown Phone Unavailable Allergies Medications Problems Procedures Results Encounters ACCT No. Visit Date/Time Discharge Status Pt. Type Provider Facility Loc./Unit Complaint [id number] 10/20/2013 15:14:00 10/20/2013 23 :59:59 CLS Outpatient
--- OUTSIDE RECORDS SUMMARY | 2017-01-20 08:41 | XMS REPORT | Continuity of Care Document ---
Author Author SAMIR [facility] Organization [facility] Address Unknown Phone Unavailable Support Name Relationship Address Phone BRODIE JUNIOR MD Caregiver [address] [facility] [address] [place] [address] Unavailable KEATON LOCKETT MD Caregiver [address] [place] [address] [place] [address] Unavailable MIMI CRUZ Next Of Kin [address] [place] [address] Insurance Providers Guarantor AnthonyJeniferreggie Escobedo Address [address] [place] [address] Email DENIED TO PORTAL Payer [facility] Preferred Policy Number [id number] Subscriber's Name Karely Cruz Gregg Relationship 18 Self Group Number [id number] Advance Directives Directive Response Recorded Date/Time Advanced Directives Type None 03/12/16 4:40am Chief Complaint and Reason for Visit Chief Complaint Nausea,Vomiting,Diarrhea Reason for Visit Viral gastroenteritis Problems Active Problems Medical Problem Onset Date Status Dehydration Unknown Acute Elevated blood sugar Unknown Acute Exudative tonsillitis Unknown Acute Migraine Unknown Acute Migraine Unknown Acute Past Problems Medical Problem Onset Date Viral gastroenteritis Unknown Medications Current Home Medications Medication Dose Units Route Directions Days Qty Instructions Start Date Glipizide 03/12/16 Metformin Hcl 1,000 Mg Tablet 1,000 Mg Oral Twice A Day 1 Tablet BEST TAKEN WITH MEALS 10/21/13 Prochlorperazine Maleate (Compazine) 10 Mg Tablet 10 Mg Oral Four Times Daily 30 Tablet 03/12/16 Past Home Medications Medication Directions Ordered Status Aspirin/Calcium Carbonate/Mag (Aspirin Non Irrit 325 Mg Tab) 325 Mg Tablet, 1 Tab Oral Daily for Headache/Pain 03/06/15 Discontinued Ciprofloxacin Hcl (Cipro) 500 Mg Tablet, 500 Mg Oral Twice A Day 01/06/14 Discontinued Exenatide Microspheres (Bydureon) 2 Mg Vial, 2 Mg Sub-Q 1XW 01/04/14 Discontinued Liraglutide (Victoza) 0.6 Mg/0.1 Ml Inj, 0.6 Mg Sub-Q Daily 10/21/13 Discontinued Ondansetron (Zofran Odt) 4 Mg/Udtablet Tab.rapdis, 4 Mg Oral Every 6-8 Hours as needed for Nausea 01/06/14 Discontinued Social History Social History Problem Response Recorded Date/Time Onset Date Status Chewing Tobacco Status No 03/12/2016 5:07am Not Applicable Not Applicable Hx Substance Use No 03/12/2016 5:07am Not Applicable Not Applicable Hx Alcohol Use No 03/12/2016 5:07am Not Applicable Not Applicable Has the pt used tobacco in the last 12 months No 01/04/2014 5:44pm Not Applicable Not Applicable Tobacco Usage none 01/04/2014 6:26pm Not Applicable Not Applicable Query Response Start Date Stop Date Smoking Status Never smoker Hospital Discharge Instructions No hospital discharge instructions. Plan of Care Discharge Date 03/12/16 6:24am Disposition 01 DISCHARGED HOME, SELF-CARE Condition at Discharge Improved Instructions/Education Provided DI for Viral Gastroenteritis -- Adult Prescriptions See Medication Section Referrals KEATON LOCKETT MD Address: [address] [place] [address] [place] [phone] Additional Instructions/Education Compazine 10mg, one every 6-8 hours for nausea or cramps as needed Zofran 4mg dissolvable every 6 hours as needed for vomiting Tylenol 1000mg or ibuprofen 600mg every 6 hours for fever or pain as needed. Return or see your doctor if not improved in two day or if worse Care Plan and Goals Physician Care Plan Problem: Viral gastroenteritis Goal: Follow up with primary care provider Instructions: Take medications and follow care plan as discussed/written Compazine 10mg, one every 6-8 hours for nausea or cramps as needed Zofran 4mg dissolvable every 6 hours as needed for vomiting Tylenol 1000mg or ibuprofen 600mg every 6 hours for fever or pain as needed. Return or see your doctor if not improved in two day or if worse Functional Status No functional status results. Allergies, Adverse Reactions, Alerts No known allergies. Immunizations Query Response on File Recorded Date/Time Hx Influenza Vaccination No 07/03/15 1:54am Hx Pneumococcal Vaccination No 07/03/15 1:54am Hx Influenza Vaccination No 07/03/15 1:54am Vital Signs Acute Vital Signs Vital Response Date/Time Temperature (Fahrenheit) 98.5 deg F (96.8 - 99.1) 03/12/2016 4:40am Temperature (Calculated Celsius) 36.25345 degrees C (36.0 - 37.3) 03/12/2016 4:40am Pulse Rate (adult) 97 bpm (60 - 100) 03/12/2016 6:02am Respiratory Rate 15 breaths/min (10 - 20) 03/12/2016 6:02am O2 Sat by Pulse Oximetry 96 % (90 - 100) 03/12/2016 6:02am Blood Pressure 132/67 mm Hg 03/12/2016 6:02am Height (Feet) 5 feet 03/12/2016 4:43am Height (Inches) 3.00 inches 03/12/2016 4:43am Weight (Kilograms) 89.000 kg 03/12/2016 4:43am Body Mass Index (BMI) 34.0 03/12/2016 4:43am Results Laboratory Results Test Name Result Units Flags Reference Collection Date/Time Result Date/ Time Comments White Blood Count 11.5 T/MM3 H 4.5-11.0 03/12/2016 5:00am 03/12/2016 5: 19am Red Blood Count 5.08 M/MM3 4.00-5.20 03/12/2016 5:00am 03/12/2016 5: 19am Hemoglobin 16.1 GM/DL H 12-16 03/12/2016 5:00am 03/12/2016 5:19am Hematocrit 47.0 % H 36-46 03/12/2016 5:00am 03/12/2016 5:19am Mean Corpuscular Volume 92.5 UM3 80-100 03/12/2016 5:00am 03/12/2016 5: 19am Mean Corpuscular Hemoglobin 31.7 UUG 26-34 03/12/2016 5:00am 2015 5:19am Mean Corpuscular Hemoglobin Concent 34.3 GM/DL 31-37 03/12/2016 5:00am 03/12/2016 5:19am RDW Standard Deviation 41.2 FL 36.9-50.2 03/12/2016 5:00am 03/12/2016 5 :19am Platelet Count 209 T/MM3 130-400 03/12/2016 5:00am 03/12/2016 5:19am Mean Platelet Volume 10.2 UM3 9.4-12.4 03/12/2016 5:00am 03/12/2016 5: 19am Neutrophils (%) (Auto) 86.1 % H 33-66 03/12/2016 5:00am 03/12/2016 5: 19am Lymphocytes (%) (Auto) 7.6 % L 23-45 03/12/2016 5:00am 03/12/2016 5: 19am Monocytes (%) (Auto) 5.4 % 0-9.0 03/12/2016 5:00am 03/12/2016 5:19am Eosinophils (%) (Auto) 0.3 % 0-4 03/12/2016 5:00am 03/12/2016 5:19am Basophils (%) (Auto) 0.2 % 0-2 03/12/2016 5:00am 03/12/2016 5:19am Immature Granulocyte % (Auto) 0.4 % 0.0-0.5 03/12/2016 5:00am 2015 5:19am Absolute Neutrophils (auto) 9.9 T/MM3 H 1.8-7.7 03/12/2016 5:00am 2015 5:19am Absolute Lymphocytes (auto) 0.9 T/MM3 L 1-4.8 03/12/2016 5:00am 2015 5:19am Absolute Monocytes (auto) 0.6 T/MM3 0-0.8 03/12/2016 5:00am 03/12/2016 5:19am Absolute Eosinophils (auto) 0.0 T/MM3 0-0.5 03/12/2016 5:00am 2015 5:19am Absolute Basophils (auto) 0.0 T/MM3 0-0.2 03/12/2016 5:00am 03/12/2016 5:19am Absolute Immature Granulocyte (auto 0.05 T/MM3 H 0.00-0.03 03/12/2016 5: 00am 03/12/2016 5:19am Icterus Index < 2 0-7 03/12/2016 5:00am 03/12/2016 5:23am Chemistry Specimen Hemolysis < 15 0-25 03/12/2016 5:00am 03/12/2016 5 :23am 0-25: Specimen Exhibited No Hemolysis. Turbidity < 20 0-20 03/12/2016 5:00am 03/12/2016 5:23am Sodium Level 142 MEQ/L 134-144 03/12/2016 5:00am 03/12/2016 5:23am Potassium Level 4.1 MEQ/L 3.6-5 03/12/2016 5:00am 03/12/2016 5:23am Chloride Level 106 MEQ/L 98-107 03/12/2016 5:00am 03/12/2016 5:23am Carbon Dioxide Level 13 MEQ/L L 22-30 03/12/2016 5:00am 03/12/2016 5: 23am Anion Gap 23 MEQ/L H 5-15 03/12/2016 5:00am 03/12/2016 5:23am Blood Urea Nitrogen 12.0 MG/DL 7-03/12/2016 5:00am 03/12/2016 5: 23am Creatinine 0.3 MG/DL L 0.7-1.2 03/12/2016 5:00am 03/12/2016 5:23am BUN/Creatinine Ratio 40 RATIO H 6-03/12/2016 5:00am 03/12/2016 5: 23am Glomerular Filtration Rate Calc 253 03/12/2016 5:00am 03/12/2016 5: 23am Glucose Level 362 MG/DL H 65-110 03/12/2016 5:00am 03/12/2016 5:23am Calculated Osmolality 288 MOSM/KG H 261-280 03/12/2016 5:00am 2015 5:23am Calcium Level 9.3 MG/DL 8.4-10.2 03/12/2016 5:00am 03/12/2016 5:23am Total Bilirubin 1.20 MG/DL 0.20-1.30 03/12/2016 5:00am 03/12/2016 5: 23am Alkaline Phosphatase 127 U/L H 38-126 03/12/2016 5:00am 03/12/2016 5: 23am Total Protein 8.2 G/DL 6.3-8.2 03/12/2016 5:00am 03/12/2016 5:23am Albumin 4.7 G/DL 3.5-5.0 03/12/2016 5:00am 03/12/2016 5:23am Globulin 3.5 G/DL 2.4-3.6 03/12/2016 5:00am 03/12/2016 5:23am Albumin/Globulin Ratio 1.3 RATIO 1.1-2.2 03/12/2016 5:00am 03/12/2016 5 :23am Aspartate Amino Transf (AST/SGOT) 18 U/L 14-36 03/12/2016 5:00am 2015 5:23am Alanine Aminotransferase (ALT/SGPT) 25 U/L 9-52 03/12/2016 5:00am 03/12 5:23am Lipase 65 U/L 23-300 03/12/2016 5:00am 03/12/2016 5:23am Urine Collection Type CLEANCATCH-MIDSTREAM 03/12/2016 5:51am 2015 5:55am Urine Color YELLOW YELLOW 03/12/2016 5:51am 03/12/2016 5:55am Urine Turbidity SL CLOUDY CLEAR 03/12/2016 5:51am 03/12/2016 5:55am Urine Specific [place] >=1.030 H 1.015-1.025 03/12/2016 5:51am 2015 5:55am Urine pH 5.5 5.0-8.0 03/12/2016 5:51am 03/12/2016 5:55am Urine Leukocyte Esterase NEGATIVE NEGATIVE 03/12/2016 5:51am 2015 5:55am Urine Nitrite NEGATIVE NEGATIVE 03/12/2016 5:51am 03/12/2016 5:55am Urine Protein NEGATIVE NEGATIVE 03/12/2016 5:51am 03/12/2016 5:55am Urine Glucose (UA) 2+ A NEGATIVE 03/12/2016 5:51am 03/12/2016 5:55am Urine Ketones 3+ A NEGATIVE 03/12/2016 5:51am 03/12/2016 5:55am Urine Urobilinogen 0.2 EU/DL NORMAL 03/12/2016 5:51am 03/12/2016 5: 55am Urine Bilirubin NEGATIVE NEGATIVE 03/12/2016 5:51am 03/12/2016 5: 55am Urine Blood TRACE-INTACT A NEGATIVE 03/12/2016 5:51am 03/12/2016 5: 55am Urinalysis Comment MICROSCOPIC NOT IND. 03/12/2016 5:51am 2015 5:55am Glucometer 294 mg/dL H 65-110 03/12/2016 4:48am 03/12/2016 4:50am Procedures No known history of procedures. Encounters Encounter Location Arrival/Admit Date Discharge/Depart Date Attending Provider Departed Emergency Room [facility] 03/12/16 4:36am 03/12/16 6: 24am BRODIE JUNIOR MD Recent Diagnosis
--- OUTSIDE RECORDS SUMMARY | 2017-01-20 08:41 | XMS REPORT | Referral Summary ---
Author Author [facility], Family Medicine Organization [facility] Address Unknown Phone Unavailable Care Team Providers Care Vulcanizer Operator Name Role Phone Alvin Fitzpatrick Primary Care Physician [phone] Encounter [facility] [id number] Date(s): 11/16/15 - 11/16/15 [facility], [address] [place] [phone] Discharge Diagnosis: Bilateral low back pain Discharge Diagnosis: Type 2 diabetes mellitus Discharge Diagnosis: Nausea vomiting and diarrhea Discharge Diagnosis: Abdominal pain Discharge Diagnosis: Headache Discharge Diagnosis: Pain behind the ear Discharge Diagnosis: Fatigue Discharge Disposition: 01-Home or Self Care Attending Physician: Anne Basilio PA-C Admitting Physician: Anne Basilio PA-C Vital Signs Most recent to 1 oldest [Reference Range]: Temperature Tympanic 36.4 degC [36.6-38.1 degC] *LOW* (11/16/15 3:32 PM) Peripheral Pulse 86 bpm Rate [60-100 bpm] (11/16/15 3:32 PM) Respiratory Rate 18 br/min [14-20 br/min] (11/16/15 3:32 PM) Blood Pressure 120/68 mmHg [90-140/60-90 mmHg] (11/16/15 3:32 PM) Problem List Condition Effective Dates Status Health Status Informant Anemia(Confirmed) 1998 Active Anxiety(Confirmed) Active Obesity(Confirmed) Active patient Type 2 diabetes Active mellitus(Confirmed) Allergies, Adverse Reactions, Alerts No Known Medication Allergies Medications Diflucan 150 mg oral tablet 150 mg 1 tabs, Oral, qWeek, # 4 tabs, 1 Refill(s), Pharmacy: [id number], 1 tabs Oral qWeek Start Date: 10/31/15 Status: Ordered glipiZIDE 5 mg oral tablet 5 mg 1 tabs, Oral, Daily, # 30 tabs, 2 Refill(s), Pharmacy: [place] [facility] [id number], 1 tabs Oral Daily Start Date: 10/31/15 Status: Ordered Insulin Pin [place] (DME) DME Item Inject insulin subq per physician orders. 6 MIL. 31 GAUGE DX: E11.9, See Instructions, # 1 Each, 0 Refill(s), Pharmacy: [place] [id number], Inject insulin subq per physician orders. 6 MIL. 31 GAUGE; DX: E11.9, Supply Start Date: 11/01/15 Status: Ordered metFORMIN 1000 mg oral tablet, extended release 1,000 mg 1 tabs, Oral, Daily, # 30 tabs, 3 Refill(s), Pharmacy: [place] [facility] [id number], 1 tabs Oral Daily Start Date: 10/31/15 Status: Ordered Miscellaneous DME DME Item Freestyle lancets. Box of 100. Dx: (E11.9) Length of need: 99, See Instructions, # 1 boxes, 0 Refill(s), Pharmacy: [place] [id number], Freestyle lancets. Box of 100. ; Dx: (E11.9) Length of need: 99, Supply Start Date: 08/17/15 Status: Ordered Miscellaneous DME DME Item Freestyle Lite test strips. Box of 100. Use once daily. Dx: (E11.9). Length of need: 99, See Instructions, # 1 boxes, 0 Refill(s), Pharmacy: [place] [id number], Freestyle Lite test strips. Box of 100. Use once daily. Dx: (E11.9). Length o... Start Date: 08/17/15 Status: Ordered Miscellaneous DME DME Item Freestyle Lite meter to be used once daily. Dx: E11.9 Length of need : 99, See Instructions, # 1 Each, 0 Refill(s), Pharmacy: [facility] [facility] [id number] , Freestyle Lite meter to be used once daily. Dx: E11.9; Length of need: 99, Supply Start Date: 08/17/15 Status: Ordered oxybutynin 5 mg oral tablet 5 mg 1 tabs, Oral, TID, # 180 tabs, 3 Refill(s), Pharmacy: [place] [id number], 1 tabs Oral TID Start Date: 10/28/15 Status: Ordered Reglan 10 mg oral tablet 10 mg 1 tabs, Oral, QID, X 7 days, # 28 tabs, 0 Refill(s), Pharmacy: [id number], 1 tabs Oral QID,x7 days Start Date: 11/16/15 Stop Date: 11/23/15 Status: Ordered Victoza 18 mg/3 mL subcutaneous solution See Instructions, 0.6 mg SubCutaneous Daily x 1 week, then 1.2mg SQ daily, # 6 mL, 0 Refill(s), samples given to patient (Rx) Start Date: 10/31/15 Status: Ordered Victoza 18 mg/3 mL subcutaneous solution 1.2 mg, SubCutaneous, Daily, # 6 mL, 3 Refill(s), Pharmacy: [id number], 1.2 mg SubCutaneous Daily Start Date: 10/31/15 Status: Ordered Results Hematology Most recent to 1 oldest [Reference Range]: WBC [4.8-10.8 9.1 10*3/uL 10*3/uL] (11/16/15 4:11 PM) RBC [4.00-5.20] 4.45 (11/16/15 4:11 PM) Hgb [12.0-16.0 14.2 gm/dL gm/dL] (11/16/15 4:11 PM) Hct [37.0-47.0 %] 40.5 % (11/16/15 4:11 PM) MCV [82.0-99.0 fL] 91.0 fL (11/16/15 4:11 PM) MCH [27.0-32.0 pg] 31.9 pg (11/16/15 4:11 PM) MCHC [32.0-36.0 35.1 gm/dL gm/dL] (11/16/15 4:11 PM) RDW [11.5-14.5 %] 12.2 % (11/16/15 4:11 PM) Platelet [150-400 235 10*3/uL 10*3/uL] (11/16/15 4:11 PM) MPV [8.8-14.8 fL] 10.2 fL (11/16/15 4:11 PM) Immature 0.3 % Granulocytes (11/16/15 4:11 PM) [0.0-1.0 %] Neutrophils [51-75 58 % %] (11/16/15 4:11 PM) Lymphocytes [20-46 31 % %] (11/16/15 4:11 PM) Monocytes [4-11 %] 9 % (11/16/15 4:11 PM) Eosinophils [0-4 %] 1 % (11/16/15 4:11 PM) Basophils [0-2 %] 0 % (11/16/15 4:11 PM) Neutro Absolute 5.29 10*3 [1.90-7.00 10*3] (11/16/15 4:11 PM) Lymph Absolute 2.85 10*3 [0.80-3.30 10*3] (11/16/15 4:11 PM) [place] Absolute 0.77 10*3 [0.30-1.00 10*3] (11/16/15 4:11 PM) Eos Absolute 0.13 10*3 [0.00-0.50 10*3] (11/16/15 4:11 PM) Baso Absolute 0.02 10*3 [0.00-0.20 10*3] (11/16/15 4:11 PM) Chemistry Most recent to 1 oldest [Reference Range]: Sodium Lvl [135-144 139 mEq/L mEq/L] (11/16/15 4:11 PM) Potassium Lvl 3.8 mEq/L [3.5-5.2 mEq/L] (11/16/15 4:11 PM) Chloride [99-111 106 mEq/L mEq/L] (11/16/15 4:11 PM) CO2 [22-31 mEq/L] 25 mEq/L (11/16/15 4:11 PM) AGAP [3-20] 8 (11/16/15 4:11 PM) BUN [7-19 mg/dL] 10 mg/dL (11/16/15 4:11 PM) Glucose Lvl [70-99 210 mg/dL mg/dL] *HI* (11/16/15 4:11 PM) Creatinine Lvl 0.59 mg/dL [0.57-1.11 mg/dL] (11/16/15 4:11 PM) eGFR [>60 mL/min] >60 mL/min 1 (11/16/15 4:11 PM) Calcium Lvl 9.1 mg/dL [8.9-10.5 mg/dL] (11/16/15 4:11 PM) Albumin Lvl [3.5-5.0 4.0 gm/dL gm/dL] (11/16/15 4:11 PM) Total Protein 6.9 gm/dL [6.4-8.3 gm/dL] (11/16/15 4:11 PM) Globulin [1.8-4.0 2.9 gm/dL gm/dL] (11/16/15 4:11 PM) ALT [0-55 U/L] 32 U/L (11/16/15 4:11 PM) AST [5-34 U/L] 21 U/L (11/16/15 4:11 PM) Alk Phos [40-150 82 U/L U/L] (11/16/15 4:11 PM) Bili Total [0.2-1.2 0.5 mg/dL mg/dL] (11/16/15 4:11 PM) Hgb A1c [4.1-5.6 %] 10.9 % *HI* (11/16/15 4:11 PM) eAvg Glucose 266.1 mg/dL (11/16/15 4:11 PM) 1Result Comment: Multiply eGFR results by 1.21 for race. Immunizations No data available for this section Procedures Procedure Date Related Diagnosis Body Site section 04/26/09 D&C for miscarriage 2003 Social History Social History Type Response Smoking Status Never smoker Assessment and Plan Extracted from: Title: Ambulatory Patient Education Author: Anne Basilio PA-C Date : 11/16/15 Anesthesiology Nausea and Vomiting Nausea is a sick feeling that often comes before throwing up (vomiting). Vomiting is a reflex where stomach contents come out of your mouth. Vomiting can cause severe loss of body fluids (dehydration). Children and elderly adults can become dehydrated quickly, especially if they also have diarrhea. Nausea and vomiting are symptoms of a condition or disease. It is important to find the cause of your symptoms. CAUSES Direct irritation of the stomach lining. This irritation can result from increased acid production (gastroesophageal reflux disease), infection, food poisoning, taking certain medicines (such as nonsteroidal anti-inflammatory drugs), alcohol use, or tobacco use. Signals from the brain.These signals could be caused by a headache, heat exposure, an inner ear disturbance, increased pressure in the brain from injury , infection, a tumor, or a concussion, pain, emotional stimulus, or metabolic problems. An obstruction in the gastrointestinal tract (bowel obstruction). Illnesses such as diabetes, hepatitis, gallbladder problems, appendicitis, kidney problems, cancer, sepsis, atypical symptoms of a heart attack, or eating disorders. Medical treatments such as chemotherapy and radiation. Receiving medicine that makes you sleep (general anesthetic) during surgery. DIAGNOSIS Your caregiver may ask for tests to be done if the problems do not improve after a few days. Tests may also be done if symptoms are severe or if the reason for the nausea and vomiting is not clear. Tests may include: Urine tests. Blood tests. Stool tests. Cultures (to look for evidence of infection). X-rays or other imaging studies. Test results can help your caregiver make decisions about treatment or the need for additional tests. TREATMENT You need to stay well hydrated. Drink frequently but in small amounts.You may wish to drink water, sports drinks, clear broth, or eat frozen ice pops or gelatin dessert to help stay hydrated.When you eat, eating slowly may help prevent nausea.There are also some antinausea medicines that may help prevent nausea. HOME CARE INSTRUCTIONS Take all medicine as directed by your caregiver. If you do not have an appetite, do not force yourself to eat. However, you must continue to drink fluids. If you have an appetite, eat a normal diet unless your caregiver tells you differently. Eat a variety of complex carbohydrates (rice, wheat, potatoes, bread), lean meats, yogurt, fruits, and vegetables. Avoid high-fat foods because they are more difficult to digest. Drink enough water and fluids to keep your urine clear or pale yellow. If you are dehydrated, ask your caregiver for specific rehydration instructions. Signs of dehydration may include: Severe thirst. Dry lips and mouth. Dizziness. Dark urine. Decreasing urine frequency and amount. Confusion. Rapid breathing or pulse. SEEK IMMEDIATE MEDICAL CARE IF: You have blood or brown flecks (like coffee grounds) in your vomit. You have black or bloody stools. You have a severe headache or stiff neck. You are confused. You have severe abdominal pain. You have chest pain or trouble breathing. You do not urinate at least once every 8 hours. You develop cold or clammy skin. You continue to vomit for longer than 24 to 48 hours. You have a fever. MAKE SURE YOU: Understand these instructions. Will watch your condition. Will get help right away if you are not doing well or get worse. Document Released: 09/30/2006 Document Revised: 12/22/2012 Document Reviewed: [facility] Patient Information 2015 [employer] [facility]. This information is not intended to replace advice given to you by your health care provider. Make sure you discuss any questions you have with your health care provider. Emergency Medicine Abdominal Pain Many things can [...] any discomfort you are experiencing: Only take kpqg-tvy-ctbzdtf or prescription medicines as directed by your [...] are not doing well or get worse. Document Released: 07/10/2006 Document Revised: 10/05/2014 Document Reviewed: [employer] Patient Information 2015 [employer]. This information is not intended to replace advice given to you by your health care provider. Make sure you discuss any questions you have with your health care provider. General Headache Without Cause A headache is pain or discomfort felt around the head or neck area. The specific cause of a headache may not be found. There are many causes and types of headaches. A few common ones are: Tension headaches. Migraine headaches. Cluster headaches. Chronic daily headaches. HOME CARE INSTRUCTIONS Keep all follow-up appointments with your caregiver or any specialist referral. Only take paug-gqo-kunvyiv or prescription medicines for pain or discomfort as directed by your caregiver. Lie down in a dark, quiet room when you have a headache. Keep a headache journal to find out what may trigger your migraine headaches. For example, write down: What you eat and drink. How much sleep you get. Any change to your diet or medicines. Try massage or other relaxation techniques. Put ice packs or heat on the head and neck. Use these 3 to 4 times per day for 15 to 20 minutes each time, or as needed. Limit stress. Sit up straight, and do not tense your muscles. Quit smoking if you smoke. Limit alcohol use. Decrease the amount of caffeine you drink, or stop drinking caffeine. Eat and sleep on a regular schedule. Get 7 to 9 hours of sleep, or as recommended by your caregiver. Keep lights dim if bright lights bother you and make your headaches worse. SEEK MEDICAL CARE IF: You have problems with the medicines you were prescribed. Your medicines are not working. You have a change from the usual headache. You have nausea or vomiting. SEEK IMMEDIATE MEDICAL CARE IF: Your headache becomes severe. You have a fever. You have a stiff neck. You have loss of vision. You have muscular weakness or loss of muscle control. You start losing your balance or have trouble walking. You feel faint or pass out. You have severe symptoms that are different from your first symptoms. MAKE SURE YOU: Understand these instructions. Will watch your condition. Will get help right away if you are not doing well or get worse. Document Released: 09/30/2006 Document Revised: 12/22/2012 Document Reviewed: [employer] Patient Information 2015 [employer]. This information is not intended to replace advice given to you by your health care provider. Make sure you discuss any questions you have with your health care provider. Family Medicine Back Pain, Adult Low back pain is very common. About 1 in 5 people have back pain.The cause of low back pain is rarely dangerous. The pain often gets better over time.About half of people with a sudden onset of back pain feel better in just 2 weeks. About 8 in 10 people feel better by 6 weeks. CAUSES Some common causes of back pain include: Strain of the muscles or ligaments supporting the spine. Wear and tear (degeneration) of the spinal discs. Arthritis. Direct injury to the back. DIAGNOSIS Most of the time, the direct cause of low back pain is not known.However, back pain can be treated effectively even when the exact cause of the pain is unknown.Answering your caregiver's questions about your overall health and symptoms is one of the most accurate ways to make sure the cause of your pain is not dangerous. If your caregiver needs more information, he or she may order lab work or imaging tests (X-rays or MRIs).However, even if imaging tests show changes in your back, this usually does not require surgery. HOME CARE INSTRUCTIONS For many people, back pain returns.Since low back pain is rarely dangerous, it is often a condition that people can learn to manageon their own. Remain active. It is stressful on the back to sit or finisher tailor apprentice one place. Do not sit, drive, or finisher tailor apprentice one place for more than 30 minutes at a time. Take short walks on level surfaces as soon as pain allows.Try to increase the length of time you walk each day. Do not stay in bed.Resting more than 1 or 2 days can delay your recovery. Do not avoid exercise or work.Your body is made to move.It is not dangerous to be active, even though your back may hurt.Your back will likely heal faster if you return to being active before your pain is gone. Pay attention to your body when you bend and lift. Many people have less discomfortwhen lifting if they bend their knees, keep the load close to their bodies,and avoid twisting. Often, the most comfortable positions are those that put less stress on your recovering back. Find a comfortable position to sleep. Use a firm mattress and lie on your side with your knees slightly bent. If you lie on your back, put a pillow under your knees. Only take tefq-rac-nllnvix or prescription medicines as directed by your caregiver. Pskg-nwc-qykuruv medicines to reduce pain and inflammation are often the most helpful.Your caregiver may prescribe muscle relaxant drugs.These medicines help dull your pain so you can more quickly return to your normal activities and healthy exercise. Put ice on the injured area. Put ice in a plastic bag. Place a towel between your skin and the bag. Leave the ice on for 15-20 minutes, 03-04 times a day for the first 2 to 3 days. After that, ice and heat may be alternated to reduce pain and spasms. Ask your caregiver about trying back exercises and gentle massage. This may be of some benefit. Avoid feeling anxious or stressed.Stress increases muscle tension and can worsen back pain.It is important to recognize when you are anxious or stressed and learn ways to manage it.Exercise is a great option. SEEK MEDICAL CARE IF: You have pain that is not relieved with rest or medicine. You have pain that does not improve in 1 week. You have new symptoms. You are generally not feeling well. SEEK IMMEDIATE MEDICAL CARE IF: You have pain that radiates from your back into your legs. You develop new bowel or bladder control problems. You have unusual weakness or numbness in your arms or legs. You develop nausea or vomiting. You develop abdominal pain. You feel faint. Document Released: 09/30/2006 Document Revised: 03/31/2013 Document Reviewed: [facility] Patient Information 2015 [facility], [facility]. This information is not intended to replace advice given to you by your health care provider. Make sure you discuss any questions you have with your health care provider. Clear Liquid Diet A clear liquid diet is a short-term diet that is prescribed to provide the necessary fluid and basic energy you need when you can have nothing else. The clear liquid diet consists of liquids or solids that will become liquid at room temperature. You should be able to see through the liquid. There are many reasons that you may be restricted to clear liquids, such as: When you have a sudden-onset (acute) condition that occurs before or after surgery. To help your body slowly get adjusted to food again after a long period when you were unable to have food. Replacement of fluids when you have a diarrheal disease. When you are going to have certain exams, such as a colonoscopy, in which instruments are inserted inside your body to look at parts of your digestive system. WHAT CAN I HAVE? A clear liquid diet does not provide all the nutrients you need. It is important to choose a variety of the following items to get as many nutrients as possible: Vegetable juices that do not have pulp. Fruit juices and fruit drinks that do not have pulp. Coffee (regular or decaffeinated), tea, or soda at the discretion of your health care provider. Clear bouillon, broth, or strained broth-based soups. High-protein and flavored gelatins. Sugar or honey. Ices or frozen ice pops that do not contain milk. If you are not sure whether you can have certain items, you should ask your health care provider. You may also ask your health care provider if there are any other clear liquid options. Document Released: 09/30/2006 Document Revised: 10/05/2014 Document Reviewed: [facility] Patient Information 2015 [employer] [facility]. This information is not intended to replace advice given to you by your health care provider. Make sure you discuss any questions you have with your health care provider. Fatigue Fatigue is a feeling of tiredness, lack of energy, lack of motivation, or feeling tired all the time. Having enough rest, good nutrition, and reducing stress will normally reduce fatigue. Consult your caregiver if it persists. The nature of your fatigue will help your caregiver to find out its cause. The treatment is based on the cause. CAUSES There are many causes for fatigue. Most of the time, fatigue can be traced to one or more of your habits or routines. Most causes fit into one or more of three general areas. They are: Lifestyle problems Sleep disturbances. Overwork. Physical exertion. Unhealthy habits. Poor eating habits or eating disorders. Alcohol and/or drug use . Lack of proper nutrition (malnutrition). Psychological problems Stress and/or anxiety problems. Depression. Grief. Boredom. Medical Problems or Conditions Anemia. . Thyroid gland problems. Recovery from major surgery. Continuous pain. Emphysema or asthma that is not well controlled Allergic conditions. Diabetes. Infections (such as mononucleosis). Obesity. Sleep disorders, such as sleep apnea. Heart failure or other heart-related problems. Cancer. Kidney disease. Liver disease. Effects of certain medicines such as antihistamines, cough and cold remedies, prescription pain medicines, heart and blood pressure medicines, drugs used for treatment of cancer, and some antidepressants. SYMPTOMS The symptoms of fatigue include: Lack of energy. Lack of drive (motivation). Drowsiness. Feeling of indifference to the surroundings. DIAGNOSIS The details of how you feel help guide your caregiver in finding out what is causing the fatigue. You will be asked about your present and past health condition. It is important to review all medicines that you take, including prescription and non-prescription items. A thorough exam will be done. You will be questioned about your feelings, habits, and normal lifestyle. Your caregiver may suggest blood tests, urine tests, or other tests to look for common medical causes of fatigue. TREATMENT Fatigue is treated by correcting the underlying cause. For example, if you have continuous pain or depression, treating these causes will improve how you feel. Similarly, adjusting the dose of certain medicines will help in reducing fatigue. HOME CARE INSTRUCTIONS Try to get the required amount of good sleep every night. Eat a healthy and nutritious diet, and drink enough water throughout the day. Practice ways of relaxing (including yoga or meditation). Exercise regularly. Make plans to change situations that cause stress. Act on those plans so that stresses decrease over time. Keep your work and personal routine reasonable. Avoid street drugs and minimize use of alcohol. Start taking a daily multivitamin after consulting your caregiver. SEEK MEDICAL CARE IF: You have persistent tiredness, which cannot be accounted for. You have fever. You have unintentional weight loss. You have headaches. You have disturbed sleep throughout the night. You are feeling sad. You have constipation. You have dry skin. You have gained weight. You are taking any new or different medicines that you suspect are causing fatigue. You are unable to sleep at night. You develop any unusual swelling of your legs or other parts of your body. SEEK IMMEDIATE MEDICAL CARE IF: You are feeling confused. Your vision is blurred. You feel faint or pass out. You develop severe headache. You develop severe abdominal, pelvic, or back pain. You develop chest pain, shortness of breath, or an irregular or fast heartbeat. You are unable to pass a normal amount of urine. You develop abnormal bleeding such as bleeding from the rectum or you vomit blood. You have thoughts about harming yourself or committing suicide. You are worried that you might harm someone else. MAKE SURE YOU: Understand these instructions. Will watch your condition. Will get help right away if you are not doing well or get worse. Document Released: 07/27/2008 Document Revised: 12/22/2012 Document Reviewed: [employer] Patient Information 2015 [employer] [facility]. This information is not intended to replace advice given to you by your health care provider. Make sure you discuss any questions you have with your health care provider. Ophthalmology Type 2 Diabetes Mellitus Type 2 diabetes mellitus, often simply referred to as type 2 diabetes, is a long -lasting (chronic) disease. In type 2 diabetes, the pancreas does not make enough insulin (a hormone), the cells are less responsive to the insulin that is made (insulin resistance), or both. Normally, insulin moves sugars from food into the tissue cells. The tissue cells use the sugars for energy. The lack of insulin or the lack of normal response to insulin causes excess sugars to build up in the blood instead of going into the tissue cells. As a result, high blood sugar (hyperglycemia) develops. The effect of high sugar (glucose) levels can cause many complications. Type 2 diabetes was also previously called adult-onset diabetes, but it can occur at any age. RISK FACTORS A person is predisposed to developing type 2 diabetes if someone in the family has the disease and also has one or more of the following primary risk factors: Overweight. An inactive lifestyle. A history of consistently eating high-calorie foods. Maintaining a normal weight and regular physical activity can reduce the chance of developing type 2 diabetes. SYMPTOMS A person with type 2 diabetes may not show symptoms initially. The symptoms of type 2 diabetes appear slowly. The symptoms include: Increased thirst (polydipsia). Increased urination (polyuria). Increased urination during the night (nocturia). Weight loss. This weight loss may be rapid. Frequent, recurring infections. Tiredness (fatigue). Weakness. Vision changes, such as blurred vision. Fruity smell to your breath. Abdominal pain. Nausea or vomiting. Cuts or bruises which are slow to heal. Tingling or numbness in the hands or feet. DIAGNOSIS Type 2 diabetes is frequently not diagnosed until complications of diabetes are present. Type 2 diabetes is diagnosed when symptoms or complications are present and when blood glucose levels are increased. Your blood glucose level may be checked by one or more of the following blood tests: A fasting blood glucose test. You will not be allowed to eat for at least 8 hours before a blood sample is taken. A random blood glucose test. Your blood glucose is checked at any time of the day regardless of when you ate. A hemoglobin A1c blood glucose test. A hemoglobin A1c test provides information about blood glucose control over the previous 3 months. An oral glucose tolerance test (OGTT). Your blood glucose is measured after you have not eaten (fasted) for 2 hours and then after you drink a glucose -containing beverage. TREATMENT You may need to take insulin or diabetes medicine daily to keep blood glucose levels in the desired range. If you use insulin, you may need to adjust the dosage depending on the carbohydrates that you eat with each meal or snack. The treatment goal is to maintain the before [place] [address] mg/dL. HOME CARE INSTRUCTIONS Have your hemoglobin A1c level checked twice a year. Perform daily blood glucose monitoring as directed by your health care provider. Monitor urine ketones when you are ill and as directed by your health care provider. Take your diabetes medicine or insulin as directed by your health care provider to maintain your blood glucose levels in the desired range. Never run out of diabetes medicine or insulin. It is needed every day. If you are using insulin, you may need to adjust the amount of insulin given based on your intake of carbohydrates. Carbohydrates can raise blood glucose levels but need to be included in your diet. Carbohydrates provide vitamins, minerals, and fiber which are an essential part of a healthy diet. Carbohydrates are found in fruits, vegetables, whole grains, dairy products, legumes, and foods containing added sugars. Eat healthy foods. You should make an appointment to see a registered dietitian to help you create an eating plan that is right for you. Lose weight if you are overweight. Carry a medical alert card or wear your medical alert jewelry. Carry a 15-gram carbohydrate snack with you at all times to treat low blood glucose (hypoglycemia). Some examples of 15-gram carbohydrate snacks include: Glucose tablets, 3 or 4. Glucose gel, 15-gram tube. Raisins, 2 tablespoons (24 grams). Jelly beans, 6. Animal crackers, 8. Regular pop, 4 ounces (120 mL). Gummy treats, 9. Recognize hypoglycemia. Hypoglycemia occurs with blood glucose levels of 70 mg/dL and below. The risk for hypoglycemia increases when fasting or skipping meals, during or after intense exercise, and during sleep. Hypoglycemia symptoms can include: Tremors or shakes. Decreased ability to concentrate. Sweating. Increased heart rate. Headache. Dry mouth. Hunger. Irritability. Anxiety. Restless sleep. Altered speech or coordination. Confusion. Treat hypoglycemia promptly. If you are alert and able to safely swallow, follow the 15:15 rule: Take 1520 grams of rapid-acting glucose or carbohydrate. Rapid-acting options include glucose gel, glucose tablets, or 4 ounces (120 mL) of fruit juice, regular soda, or low-fat milk. Check your blood glucose level 15 minutes after taking the glucose. Take 1520 grams more of glucose if the repeat blood glucose level is still 70 mg/dL or below. Eat a meal or snack within 1 hour once blood glucose levels return to normal. Be alert to feeling very thirsty and urinating more frequently than usual, which are early signs of hyperglycemia. An early awareness of hyperglycemia allows for prompt treatment. Treat hyperglycemia as directed by your health care provider. Engage in at least 150 minutes of moderate-intensity physical activity a week, spread over at least 3 days of the week or as directed by your health care provider. In addition, you should engage in resistance exercise at least 2 times a week or as directed by your health care provider. Try to spend no more than 90 minutes at one time inactive. Adjust your medicine and food intake as needed if you start a new exercise or sport. Follow your sick-day plan anytime you are unable to eat or drink as usual. Do not use any tobacco products including cigarettes, chewing tobacco, or electronic cigarettes. If you need help quitting, ask your health care provider. Limit alcohol intake to no more than 1 drink per day for non women and 2 drinks per day for men. You should drink alcohol only when you are also eating food. Talk with your health care provider whether alcohol is safe for you. Tell your health care provider if you drink alcohol several times a week. Keep all follow-up visits as directed by your health care provider. This is important. Schedule an eye exam soon after the diagnosis of type 2 diabetes and then annually. Perform daily skin and foot care. Examine your skin and feet daily for cuts , bruises, redness, nail problems, bleeding, blisters, or sores. A foot exam by a health care provider should be done annually. [place] your teeth and gums at least twice a day and floss at least once a day. Follow up with your dentist regularly. Share your diabetes management plan with your workplace or school. Stay up-to-date with immunizations. It is recommended that people with diabetes who are over 65 years old get the pneumonia vaccine. In some cases, two separate shots may be given. Ask your health care provider if your pneumonia vaccination is up-to-date. Learn to manage stress. Obtain ongoing diabetes education and support as needed. Participate in or seek rehabilitation as needed to maintain or improve independence and quality of life. Request a physical or occupational therapy referral if you are having foot or hand numbness, or difficulties with grooming , dressing, eating, or physical activity. SEEK MEDICAL CARE IF: You are unable to eat food or drink fluids for more than 6 hours. You have nausea and vomiting for more than 6 hours. Your blood glucose level is over 240 mg/dL. There is a change in mental status. You develop an additional serious illness. You have diarrhea for more than 6 hours. You have been sick or have had a fever for a couple of days and are not getting better. You have pain during any physical activity. SEEK IMMEDIATE MEDICAL CARE IF: You have difficulty breathing. You have moderate to large ketone levels. MAKE SURE YOU: Understand these instructions. Will watch your condition. Will get help right away if you are not doing well or get worse. Document Released: 09/30/2006 Document Revised: 02/14/2015 Document Reviewed: [facility] Patient Information 2015 [facility]. This information is not intended to replace advice given to you by your health care provider. Make sure you discuss any questions you have with your health care provider. No follow up information was provided. Extracted from: Title: Office Visit Note Author: Anne Basilio PA-C Date: 11/16/15 Assessment/Plan Abdominal pain She has such a myriad of sx, it's difficult to know what it going on. D/w pt that we should first get lab work done. I am worried that maybe she has some gallbladder issues. Will check CMP first, and d/w her that we may need to get US of RUQ.Will also check for H. Pylori infection. She is advised not to take Aleve/Ibuprofen on an empty stomach. I do not think the sx are due to her medications. She has been on these before without issue. Perhaps could be viral gastroenteritis. She was given work note to be off from 11/14-11/18. Ordered: Comprehensive Metabolic Panel Helicobacter pylori Antibody IgG Office Visit Level 4 Est 64639 Bilateral low back pain This appears muscular. Take Tylenol or Aleve with food. Use ice/heat. Rest. Fatigue She has been c/o this routinely. Seems to be worse now with her other sx. Will check labs today.Has had TSH checked and was normal. Headache For her BROUSSARD, she can continue to take Aleve, as long asshe takes with food. May also take Tylenol. Ordered: CBC w/ Differential Office Visit Level 4 Est 74356 Nausea vomiting and diarrhea Check lab today. I wonder if shehas some elementsof diabetic gastroparesis. Willdo trial of Reglan to see if this helps with her nausea. For the diarrhea, pt may try some Imodium OTC if desired. I advised pt to try a couple days of justclear liquid diet, and slowly progress to BRAT diet. Ordered: CBC w/ Differential Comprehensive Metabolic Panel Office Visit Level 4 Est 53942 Pain behind the ear I'm not sure what this area is. For now, monitor. RTC if changing. Could US if increasing in size. Could try some warm compresses to the area if desired. Type 2 diabetes mellitus Will check her A1C today. She is to continue on the medications at this time. It sounds like she is doing better on the Victoza, but she has just started this in the last 2 weeks. Need to follow up closely to adjust medications. She may need basal insulin soon. Ordered: Hemoglobin A1c Office Visit Level 4 Est 13503 Orders: metoclopramide, 10 mg 1 tabs, Oral, QID, X 7 days, # 28 tabs, 0 Refill (s), Pharmacy: [id number], 1 tabs Oral QID,x7 days
--- OUTSIDE RECORDS SUMMARY | 2017-01-20 08:41 | XMS REPORT | Referral Summary ---
Author Author [facility], Family Medicine Organization [facility] Address Unknown Phone Unavailable Care Team Providers Care Advanced Manager Name Role Phone Alvin Fitzpatrick Primary Care Physician [phone] Encounter VC Date(s): 04/20/16 - 04/20/16 [facility], [address] [place] [id number]- Discharge Disposition: 01-Home or Self Care Attending Physician: Marquise Fitzpatrick MD Admitting Physician: Marquise Fitzpatrick MD Vital Signs Most recent to 1 oldest [Reference Range]: Blood Pressure 128/74 mmHg [90-140/60-90 mmHg] (04/20/16 4:03 PM) Problem List Condition Effective Dates Status Health Status Informant Anemia(Confirmed) 1998 Active Anxiety(Confirmed) Active Bilateral Active headaches(Confirmed) Obesity(Confirmed) Active patient Type 2 diabetes Active mellitus(Confirmed) Allergies, Adverse Reactions, Alerts No Known Medication Allergies Medications cinnamon 500 mg oral capsule 500 mg 1 caps, Oral, BID, # 100 caps, 0 Refill(s) Start Date: 04/20/16 Status: Ordered Fioricet oral tablet 1 tabs, Oral, q4hr, as needed for headache, # 60 tabs, 0 Refill(s), Pharmacy: [id number] Start Date: 04/20/16 Status: Ordered glipiZIDE 5 mg oral tablet 5 mg 1 tabs, Oral, Daily, DX: E11.9, # 30 tabs, 1 Refill(s), Pharmacy: [facility], 1 tabs Oral Daily,Instr:DX: E11.9 Start Date: 03/23/16 Status: Ordered HumaLOG KwikPen 100 units/mL subcutaneous solution 15 units, SubCutaneous, TIDAC, dc novolog,DX: E11.9, # 15 mL, 0 Refill(s), Pharmacy: [facility], 15 units SubCutaneous TIDAC,x30 days,Instr:dc novolog,DX: E11.9 Start Date: 03/23/16 Stop Date: 04/22/16 Status: Ordered Insulin Pin [place] (DME) DME Item Inject insulin subq Pen [place]-per physician orders. 6 MIL. 31 GAUGE DX: E11.9, See Instructions, # 1 boxes, 1 Refill(s), Pharmacy: [id number], Inject insulin subq Pen [place]-per physician orders. 6 MIL. 31 GAUGE; DX: E11.9,... Start Date: 03/23/16 Status: Ordered Lantus Solostar Pen 100 units/mL subcutaneous solution 20 units, SubCutaneous, Bedtime (once a day), dc Levemir, try pen see if insurance will ok DX; E11.9, # 10 mL, 0 Refill(s), Pharmacy: [place] [address], 20 units SubCutaneous Bedtime (once a day),x30 days,Instr:dc Levemir, try pen see if insuran... Start Date: 03/23/16 Stop Date: 04/22/16 Status: Ordered metFORMIN 500 mg oral tablet 500 mg 1 tabs, Oral, BID, dc order for 1000mg tab-ins. won't cover- Dx: E11.9 , # 60 tabs, 0 Refill(s), Pharmacy: [place] [address], 1 tabs Oral BID, Instr:dc order for 1000mg tab-ins. won't cover- ; Dx: E11.9 Start Date: 03/23/16 Status: Ordered Miscellaneous DME DME Item Freestyle Lite test strips. Box of 100. Use to test TID when taking insulin. Dx: (E11.9). Length of need: 99, See Instructions, # 1 boxes, 1 Refill( s), Pharmacy: [facility], Freestyle Lite test strips. Box of 100. Use to test TID... Start Date: 03/23/16 Status: Ordered Miscellaneous DME DME Item Freestyle lancets. Box of 100. Dx: (E11.9) Length of need: 99, See Instructions, # 1 boxes, 0 Refill(s), Pharmacy: [facility], Freestyle lancets. Box of 100. ; Dx: (E11.9) Length of need: 99, Supply Start Date: 08/17/15 Status: Ordered potassium chloride 99 mg oral tablet 99 mg 1 tabs, Oral, Daily, # 100 tabs, 0 Refill(s) Start Date: 04/20/16 Status: Ordered Results Chemistry Most recent to 1 oldest [Reference Range]: Sodium Lvl [135-144 136 mEq/L mEq/L] (04/20/16 4:32 PM) Potassium Lvl 3.9 mEq/L [3.5-5.2 mEq/L] (04/20/16 4:32 PM) Chloride [99-111 101 mEq/L mEq/L] (04/20/16 4:32 PM) CO2 [22-31 mEq/L] 24 mEq/L (04/20/16 4:32 PM) AGAP [3-20] 11 (04/20/16 4:32 PM) BUN [7-19 mg/dL] 12 mg/dL (04/20/16 4:32 PM) Glucose Lvl [70-99 231 mg/dL mg/dL] *HI* (04/20/16 4:32 PM) Creatinine Lvl 0.59 mg/dL [0.57-1.11 mg/dL] (04/20/16 4:32 PM) eGFR [>60 mL/min] >60 mL/min 1 (04/20/16 4:32 PM) Calcium Lvl 9.6 mg/dL [8.9-10.5 mg/dL] (04/20/16 4:32 PM) Hgb A1c [4.1-5.6 %] 10.4 % *HI* (04/20/16 4:32 PM) eAvg Glucose 251.8 mg/dL (04/20/16 4:32 PM) 1Result Comment: Multiply eGFR results by 1.21 for race. Immunizations No data available for this section Procedures Procedure Date Related Diagnosis Body Site section 04/26/09 D&C for miscarriage 2003 Social History Social History Type Response Smoking Status Never smoker Assessment and Plan No data available for this section
--- OUTSIDE RECORDS SUMMARY | 2017-01-20 08:41 | XMS REPORT | Referral Summary ---
Author Author [facility], [facility] Medicine Organization [facility] Address Unknown Phone Unavailable Care Team Providers Care Barbecue Cook Name Role Phone Alvin Fitzpatrick Primary Care Physician [phone] Encounter Date(s): 10/31/15 - 10/31/15 [facility], [address] [place] [address]- Discharge Diagnosis: Type 2 diabetes mellitus Discharge Diagnosis: Vulvovaginal candidiasis Discharge Diagnosis: Obesity Discharge Disposition: 01-Home or Self Care Attending Physician: Anne Basilio PA-C Admitting Physician: Anne Basilio PA-C Vital Signs Most recent to 1 oldest [Reference Range]: Temperature Tympanic 35.7 degC [36.6-38.1 degC] *LOW* (10/31/15 8:45 AM) Peripheral Pulse 80 bpm Rate [60-100 bpm] (10/31/15 8:45 AM) Respiratory Rate 18 br/min [14-20 br/min] (10/31/15 8:45 AM) Blood Pressure 132/78 mmHg [90-140/60-90 mmHg] (10/31/15 8:45 AM) Problem List Condition Effective Dates Status Health Status Informant Anemia(Confirmed) 1998 Active Anxiety(Confirmed) Active Obesity(Confirmed) Active patient Type 2 diabetes Active mellitus(Confirmed) Allergies, Adverse Reactions, Alerts No Known Medication Allergies Medications Diflucan 150 mg oral tablet 150 mg 1 tabs, Oral, qWeek, # 4 tabs, 1 Refill(s), Pharmacy: [facility], 1 tabs Oral qWeek Start Date: 10/31/15 Status: Ordered glipiZIDE 5 mg oral tablet 5 mg 1 tabs, Oral, Daily, # 30 tabs, 2 Refill(s), Pharmacy: [place] [id number], 1 tabs Oral Daily Start Date: 10/31/15 Status: Ordered Insulin Pin [place] (DME) DME Item Inject insulin subq per physician orders DX: E11.9, See Instructions, # 1 Each, 0 Refill(s), Pharmacy: [place] [id number], Inject insulin subq per physician orders; DX: E11.9, Supply Start Date: 10/31/15 Status: Ordered metFORMIN 1000 mg oral tablet, extended release 1,000 mg 1 tabs, Oral, Daily, # 30 tabs, 3 Refill(s), Pharmacy: [place] [address], 1 tabs Oral Daily Start Date: 10/31/15 Status: Ordered Miscellaneous DME DME Item Freestyle lancets. Box of 100. Dx: (E11.9) Length of need: 99, See Instructions, # 1 boxes, 0 Refill(s), Pharmacy: [place] [address], Freestyle lancets. Box of 100. ; Dx: (E11.9) Length of need: 99, Supply Start Date: 08/17/15 Status: Ordered Miscellaneous DME DME Item Freestyle Lite test strips. Box of 100. Use once daily. Dx: (E11.9). Length of need: 99, See Instructions, # 1 boxes, 0 Refill(s), Pharmacy: [place] [id number], Freestyle Lite test strips. Box of 100. Use once daily. Dx: (E11.9). Length o... Start Date: 08/17/15 Status: Ordered Miscellaneous DME DME Item Freestyle Lite meter to be used once daily. Dx: E11.9 Length of need : 99, See Instructions, # 1 Each, 0 Refill(s), Pharmacy: [place] [address] , Freestyle Lite meter to be used once daily. Dx: E11.9; Length of need: 99, Supply Start Date: 08/17/15 Status: Ordered oxybutynin 5 mg oral tablet 5 mg 1 tabs, Oral, TID, # 180 tabs, 3 Refill(s), Pharmacy: [place] [id number], 1 tabs Oral TID Start Date: 10/28/15 Status: Ordered Victoza 18 mg/3 mL subcutaneous solution See Instructions, 0.6 mg SubCutaneous Daily x 1 week, then 1.2mg SQ daily, # 6 mL, 0 Refill(s), samples given to patient (Rx) Start Date: 10/31/15 Status: Ordered Victoza 18 mg/3 mL subcutaneous solution 1.2 mg, SubCutaneous, Daily, # 6 mL, 3 Refill(s), Pharmacy: [facility], 1.2 mg SubCutaneous Daily Start Date: 10/31/15 Status: Ordered Results No data available for this section Immunizations No data available for this section Procedures Procedure Date Related Diagnosis Body Site section 04/26/09 D&C for miscarriage 2003 Social History Social History Type Response Smoking Status Never smoker Assessment and Plan Extracted from: Title: Ambulatory Patient Education Author: Anne Basilio PA-C Date : 10/31/15 Family Medicine Candidal Vulvovaginitis Candidal vulvovaginitis is an infection of the vagina and vulva. The vulva is the skin around the opening of the vagina. This may cause itching and discomfort in and around the vagina. HOME CARE Only take medicine as told by your doctor. Do not have sex (intercourse) until the infection is healed or as told by your doctor. Practice safe sex. Tell your sex partner about your infection. Do not douche or use tampons. Wear cotton underwear. Do not wear tight pants or panty hose. Eat yogurt. This may help treat and prevent yeast infections. GET HELP RIGHT AWAY IF: You have a fever. Your problems get worse during treatment or do not get better in 3 days. You have discomfort, irritation, or itching in your vagina or vulva area. You have pain after sex. You start to get belly (abdominal) pain. MAKE SURE YOU: Understand these instructions. Will watch your condition. Will get help right away if you are not doing well or get worse. Document Released: 12/27/2009 Document Revised: 10/05/2014 Document Reviewed: ExitCare Patient Information 2015 [employer]. This information is not intended to replace advice given to you by your health care provider. Make sure you discuss any questions you have with your health care provider. Insulin Resistance Blood sugar (glucose) levels are controlled by a hormone called insulin. Insulin is made by your pancreas. When your blood glucose goes up, insulin is released into your blood. Insulin is required for your body to function normally. However, your body can become resistant to your own insulin or to insulin given to treat diabetes. In either case, insulin resistance can lead to serious problems. These problems include: Type 2 diabetes. Heart disease. High blood pressure. Stroke. Polycystic ovary syndrome. Fatty liver. CAUSES Insulin resistance can develop for many different reasons. It is more likely to happen in people with these conditions or characteristics: Obesity. Inactivity. . High blood pressure. Stress. Steroid use. Infection or severe illness. Increased levels of cholesterol and triglycerides. SYMPTOMS There are no symptoms. You may have symptoms related to the various complications of insulin resistance. DIAGNOSIS Several different things can make your caregiver suspect you have insulin resistance. These include: High blood glucose (hyperglycemia). Abnormal cholesterol levels. High uric acid levels. Changes related to blood pressure. Changes related to inflammation. Insulin resistance can be determined with blood tests. An elevated insulin level when you have not eaten might suggest resistance. Other more complicated tests are sometimes necessary. TREATMENT Lifestyle changes are the most important treatment for insulin resistance. If you are overweight and you have insulin resistance, you can improve your insulin sensitivity by losing weight. Moderate exercise for 3040 minutes, 4 days a week, can improve insulin sensitivity. Some medicines can also help improve your insulin sensitivity. Your caregiver can discuss these with you if they are appropriate. HOME CARE INSTRUCTIONS Do not smoke. Keep your weight at a healthy level. Get exercise. If you have diabetes, follow your caregiver's directions. If you have high blood pressure, follow your caregiver's directions. Only take prescription medicines for pain, fever, or discomfort as directed by your caregiver. SEEK MEDICAL CARE IF: You are diabetic and you are having problems keeping your blood glucose levels at target range. You are having episodes of low blood glucose (hypoglycemia). You feel you might be having side effects from your medicines. You have symptoms of an illness that is not improving after 34 days. You have a sore or wound that is not healing. You notice a change in vision or a new problem with your vision. SEEK IMMEDIATE MEDICAL CARE IF: Your blood glucose goes below 70, especially if you have confusion, lightheadedness, or other symptoms with it. Your blood glucose is very high (as advised by your caregiver) twice in a row. You pass out. You have chest pain or trouble breathing. You have a sudden, severe headache. You have sudden weakness in one arm or one leg. You have sudden difficulty speaking or swallowing. You develop vomiting or diarrhea that is getting worse or not improving after 1 day. Document Released: 11/19/2006 Document Revised: 03/31/2013 Document Reviewed: [facility] Patient Information 2015 [employer]. This information is not intended to replace advice given to you by your health care provider. Make sure you discuss any questions you have with your health care provider. Obstetrics and Gynecology Hyperglycemia Hyperglycemia occurs when the glucose (sugar) in your blood is too high. Hyperglycemia can happen for many reasons, but it most often happens to people who do not know they have diabetes or are not managing their diabetes properly. CAUSES Whether you have diabetes or not, there are other causes of hyperglycemia. Hyperglycemia can occur when you have diabetes, but it can also occur in other situations that you might not be as aware of, such as: Diabetes If you have diabetes and are having problems controlling your blood glucose , hyperglycemia could occur because of some of the following reasons: Not following your meal plan. Not taking your diabetes medications or not taking it properly. Exercising less or doing less activity than you normally do. Being sick. Pre-diabetes This cannot be ignored. Before people develop Type 2 diabetes, they almost always have "pre-diabetes." This is when your blood glucose levels are higher than normal, but not yet high enough to be diagnosed as diabetes. Research has shown that some long-term damage to the body, especially the heart and circulatory system, may already be occurring during pre-diabetes. If you take action to manage your blood glucose when you have pre-diabetes, you may delay or prevent Type 2 diabetes from developing. Stress If you have diabetes, you may be "diet" controlled or on oral medications or insulin to control your diabetes. However, you may find that your blood glucose is higher than usual in the hospital whether you have diabetes or not. This is often referred to as "stress hyperglycemia." Stress can elevate your blood glucose. This happens because of hormones put out by the body during times of stress. If stress has been the cause of your high blood glucose, it can be followed regularly by your caregiver. That way he/she can make sure your hyperglycemia does not continue to get worse or progress to diabetes. Steroids Steroids are medications that act on the infection fighting system (immune system) to block inflammation or infection. One side effect can be a rise in blood glucose. Most people can produce enough extra insulin to allow for this rise, but for those who cannot, steroids make blood glucose levels go even higher. It is not unusual for steroid treatments to "uncover" diabetes that is developing. It is not always possible to determine if the hyperglycemia will go away after the steroids are stopped. A special blood test called an A1c is sometimes done to determine if your blood glucose was elevated before the steroids were started. SYMPTOMS Thirsty. Frequent urination. Dry mouth. Blurred vision. Tired or fatigue. Weakness. Sleepy. Tingling in feet or leg. DIAGNOSIS Diagnosis is made by monitoring blood glucose in one or all of the following ways: A1c test. This is a chemical found in your blood. Fingerstick blood glucose monitoring. Laboratory results. TREATMENT First, knowing the cause of the hyperglycemia is important before the hyperglycemia can be treated. Treatment may include, but is not be limited to: Education. Change or adjustment in medications. Change or adjustment in meal plan. Treatment for an illness, infection, etc. More frequent blood glucose monitoring. Change in exercise plan. Decreasing or stopping steroids. Lifestyle changes. HOME CARE INSTRUCTIONS Test your blood glucose as directed. Exercise regularly. Your caregiver will give you instructions about exercise. Pre-diabetes or diabetes which comes on with stress is helped by exercising. Eat wholesome, balanced meals. Eat often and at regular, fixed times. Your caregiver or senior accounting clerk will give you a meal plan to guide your sugar intake. Being at an ideal weight is important. If needed, losing as little as 10 to 15 pounds may help improve blood glucose levels. SEEK MEDICAL CARE IF: You have questions about medicine, activity, or diet. You continue to have symptoms (problems such as increased thirst, urination , or weight gain). SEEK IMMEDIATE MEDICAL CARE IF: You are vomiting or have diarrhea. Your breath smells fruity. You are breathing faster or slower. You are very sleepy or incoherent. You have numbness, tingling, or pain in your feet or hands. You have chest pain. Your symptoms get worse even though you have been following your caregiver' s orders. If you have any other questions or concerns. Document Released: 03/26/2002 Document Revised: 12/22/2012 Document Reviewed: [facility] Patient Information 2015 [employer] [facility]. This information is not intended to [...] meal blood [place] ([place] [address] mg/dL. HOME CARE INSTRUCTIONS Have your hemoglobin [...] health care provider should be done annually. [place] your teeth and gums at least twice [...] Released: 09/30/2006 Document Revised: 02/14/2015 Document Reviewed: ExitCare Patient Information 2015 [facility]. This information is not intended to replace advice given to you by your health care provider. Make sure you discuss any questions you have with your health care provider. No follow up information was provided. Extracted from: Title: Office Visit Note- T2DM Author: Anne Basilio PA-C Date: Assessment/Plan Obesity She is encouraged to continue to work on diet. Increase exercise. Ordered: Office Visit Level 4 Est 02578 Type 2 diabetes mellitus Willhaving pt continue with Metformin and Glipizide , and add Victoza 0.6mg x 1 week and then increase to 1.2mg daily. She has been on this before. Ispent about 20 minutes in counseling with the pt. I think a lot of her sx are due to herhyperglycemia. We need to get her BG levels down first. Iencouraged her tostay on the Metformin.I also d/w her that I need to see what her BG levels are doing at home, and I need to see her about every couple of weeks in the beginning while we are titrating and adjusting her medications. She voiced understanding. Will f/u with her in a couple weeks, and can probably get A1C again at that time (11/17/15 or later). Ordered: Office Visit Level 4 Est 48792 Vulvovaginal candidiasis This is as a complication from her DM. Will have her do Diflucan weekly to help with these yeast infections. Continue to follow with Dr. Wright. Ordered: Office Visit Level 4 Est 75153 Orders: Durable Medical Equipment Rx, DME Item Inject insulin subq per physician orders DX: E11.9, See Instructions, # 1 Each, 0 Refill(s), Pharmacy: [facility], Inject insulin subq per physician orders; DX: E11.9, Supply fluconazole, 150 mg 1 tabs, Oral, qWeek, # 4 tabs, 1 Refill(s), Pharmacy: [facility], 1 tabs Oral qWeek glipiZIDE, 5 mg 1 tabs, Oral, Daily, # 30 tabs, 2 Refill(s), Pharmacy: [facility], 1 tabs Oral Daily liraglutide, See Instructions, 0.6 mg SubCutaneous Daily x 1 week, then 1.2mg SQ daily, # 6 mL, 0 Refill(s), samples given to patient (Rx) liraglutide, 1.2 mg, SubCutaneous, Daily, # 6 mL, 3 Refill(s), Pharmacy: [facility], 1.2 mg SubCutaneous Daily metFORMIN, 1,000 mg 1 tabs, Oral, Daily, # 30 tabs, 3 Refill(s), Pharmacy: [facility], 1 tabs Oral Daily
--- OUTSIDE RECORDS SUMMARY | 2017-01-20 08:41 | XMS REPORT | Referral Summary ---
Author Author [facility], [facility] Care Organization [facility] Address Unknown Phone Unavailable Care Team Providers Care Bricklayer Supervisor Name Role Phone Alvin Fitzpatrick Primary Care Physician [phone] Encounter VC Date(s): 10/28/15 - 10/28/15 [facility], [address] [place] [address]- Discharge Diagnosis: Headache Discharge Diagnosis: DM complication NOS type II, uncontrolled Discharge Disposition: 01-Home or Self Care Attending Physician: Edwin Chaudhari PA-C Admitting Physician: Edwin Chaudhari PA-C Vital Signs Most recent to 1 oldest [Reference Range]: Peripheral Pulse 90 bpm Rate [60-100 bpm] (10/28/15 5:13 PM) Blood Pressure 122/80 mmHg [90-140/60-90 mmHg] (10/28/15 5:13 PM) Problem List Condition Effective Dates Status Health Status Informant Anemia(Confirmed) 1998 Active Anxiety(Confirmed) Active Obesity(Confirmed) Active patient Type 2 diabetes Active mellitus(Confirmed) Allergies, Adverse Reactions, Alerts No Known Medication Allergies Medications Cranberry oral tablet 500 mg, 0 Refill(s) Start Date: 08/24/15 Status: Ordered glipiZIDE 5 mg oral tablet 5 mg 1 tabs, Oral, Daily, # 30 tabs, 0 Refill(s), Pharmacy: [facility], 1 tabs Oral Daily Start Date: 09/20/15 Status: Ordered metFORMIN 500 mg oral tablet, extended release 1,000 mg 2 tabs, Oral, Daily, # 60 tabs, 0 Refill(s), Pharmacy: [facility], 2 tabs Oral Daily Start Date: 09/20/15 Status: Ordered Miscellaneous DME DME Item Freestyle lancets. Box of 100. Dx: (E11.9) Length of need: 99, See Instructions, # 1 boxes, 0 Refill(s), Pharmacy: [facility], Freestyle lancets. Box of 100. ; Dx: (E11.9) Length of need: 99, Supply Start Date: 08/17/15 Status: Ordered Miscellaneous DME DME Item Freestyle Lite test strips. Box of 100. Use once daily. Dx: (E11.9). Length of need: 99, See Instructions, # 1 boxes, 0 Refill(s), Pharmacy: [facility], Freestyle Lite test strips. Box of 100. Use once daily. Dx: (E11.9). Length o... Start Date: 08/17/15 Status: Ordered Miscellaneous DME DME Item Freestyle Lite meter to be used once daily. Dx: E11.9 Length of need : 99, See Instructions, # 1 Each, 0 Refill(s), Pharmacy: [facility] , Freestyle Lite meter to be used once daily. Dx: E11.9; Length of need: 99, Supply Start Date: 08/17/15 Status: Ordered oxybutynin 5 mg oral tablet 5 mg 1 tabs, Oral, TID, # 180 tabs, 3 Refill(s), Pharmacy: [facility], 1 tabs Oral TID Start Date: 10/28/15 Status: Ordered Results No data available for this section Immunizations No data available for this section Procedures Procedure Date Related Diagnosis Body Site section 04/26/09 D&C for miscarriage 2003 Social History Social History Type Response Smoking Status Never smoker Assessment and Plan No data available for this section
--- OUTSIDE RECORDS SUMMARY | 2017-01-20 08:41 | XMS REPORT | Referral Summary ---
Author Author [facility], [facility] Care Organization [facility] Address Unknown Phone Unavailable Care Team Providers Care Tip Finisher Name Role Phone Alvin Fitzpatrick Primary Care Physician [phone] Encounter Date(s): 01/24/16 - 01/24/16 [facility], [address] [place] [address]- Discharge Diagnosis: Skin rash Discharge Disposition: 01-Home or Self Care Attending Physician: Edwin Chaudhari PA-C Admitting Physician: Edwin Chaudhari PA-C Vital Signs Most recent to 1 oldest [Reference Range]: Temperature Tympanic 37.2 degC [36.6-38.1 degC] (01/24/16 5:34 PM) Peripheral Pulse 88 bpm Rate [60-100 bpm] (01/24/16 5:34 PM) Blood Pressure 128/58 mmHg [90-140/60-90 mmHg] (01/24/16 5:34 PM) SpO2 97 % (01/24/16 5:34 PM) Problem List Condition Effective Dates Status Health Status Informant Anemia(Confirmed) 1998 Active Anxiety(Confirmed) Active Obesity(Confirmed) Active patient Type 2 diabetes Active mellitus(Confirmed) Allergies, Adverse Reactions, Alerts No Known Medication Allergies Medications Diflucan 150 mg oral tablet 150 mg 1 tabs, Oral, qWeek, # 4 tabs, 1 Refill(s), Pharmacy: [facility], 1 tabs Oral qWeek Start Date: 10/31/15 Status: Ordered Elidel 1% topical cream 1 maranda, Topical, BID, X 7 days, # 30 g, 0 Refill(s), Pharmacy: [facility] Start Date: 01/24/16 Stop Date: 01/31/16 Status: Ordered glipiZIDE 5 mg oral tablet 5 mg 1 tabs, Oral, Daily, # 30 tabs, 2 Refill(s), Pharmacy: [place] [address], 1 tabs Oral Daily Start Date: 10/31/15 Status: Ordered Insulin Pin [place] (DME) DME Item Inject insulin subq per physician orders. 6 MIL. 31 GAUGE DX: E11.9, See Instructions, # 1 Each, 0 Refill(s), Pharmacy: [place] [address], Inject insulin subq per physician orders. 6 MIL. 31 GAUGE; DX: E11.9, Supply Start Date: 11/01/15 Status: Ordered metFORMIN 1000 mg oral tablet, extended release 1,000 mg 1 tabs, Oral, Daily, # 30 tabs, 3 Refill(s), Pharmacy: [place] [address], 1 tabs Oral Daily Start Date: 10/31/15 Status: Ordered Miscellaneous DME DME Item Freestyle lancets. Box of 100. Dx: (E11.9) Length of need: 99, See Instructions, # 1 boxes, 0 Refill(s), Pharmacy: [place] [address], Freestyle lancets. Box of 100. ; Dx: (E11.9) Length of need: 99, Supply Start Date: 08/17/15 Status: Ordered Miscellaneous DME DME Item Freestyle Lite test strips. Box of 100. Use once daily. Dx: (E11.9). Length of need: 99, See Instructions, # 1 boxes, 0 Refill(s), Pharmacy: [place] [id number], Freestyle Lite test strips. Box of 100. Use once daily. Dx: (E11.9). Length o... Start Date: 08/17/15 Status: Ordered Miscellaneous DME DME Item Freestyle Lite meter to be used once daily. Dx: E11.9 Length of need : 99, See Instructions, # 1 Each, 0 Refill(s), Pharmacy: [place] [address] , Freestyle Lite meter to be used once daily. Dx: E11.9; Length of need: 99, Supply Start Date: 08/17/15 Status: Ordered oxybutynin 5 mg oral tablet 5 mg 1 tabs, Oral, TID, # 180 tabs, 3 Refill(s), Pharmacy: [place] [address], 1 tabs Oral TID Start Date: 10/28/15 Status: Ordered Results No data available for this section Immunizations No data available for this section Procedures Procedure Date Related Diagnosis Body Site section 04/26/09 D&C for miscarriage 2004 Social History Social History Type Response Smoking Status Never smoker Assessment and Plan No data available for this section
--- OUTSIDE RECORDS SUMMARY | 2017-01-20 08:41 | XMS REPORT | Continuity of Care Document ---
Author Author Marquise Fitzpatrick MD Organization [facility] Address [address] [place] [address] Phone Care Team Providers Care Shafting Worker Name Role Phone Marquise Fitzpatrick PP Unavailable Payers Payer name Insurance type Covered democrat ID Authorization(s) Unknown Problems Condition Effective Dates (start - stop) Clinical Status Upper Respiratory Infection, Acute - *Acute Diabetes Mellitus, Adult Onset, Uncontrolled - *Poor control Fever - *Acute Fatigue / Malaise - *Acute Diabetes Mellitus Type 2, Uncomplicated - *Poor control Other and unspecified hyperlipidemia - *Poor control Fatigue / Malaise - *Acute Diabetes Mellitus, Adult Onset, Uncontrolled - *Poor control Acute tonsillitis - Improved DMII WO CMP NT ST UN[facility] - Palpitations - *Stable DM (diabetes mellitus) - *Poor control Depression - *Fair Control Fatigue - *Acute Family History Family Member Diagnosis Age At Onset Status Unknown Social History Social History Element Description Quantity Unknown Allergies, Adverse Reactions, Alerts Substance Reaction Severity Status Unknown Medications Medication Instructions Dosage Effective Dates (start - stop) Status inject 1.2MG by subcutaneous route every day - Active metformin 1,000 mg tablet Take 1 tablet by mouth twice a day. - Active Microlet Lancet Test twice daily - DX:250.00 - Active Accu-Chek SmartView strips Test blood sugars twice a day DX:250.00 2012 - Active lancets Check blood sugars twice daily DX: 250.00 - Active Immunizations Vaccine Date Status Comments Unknown Results Test Name Date and Time Measure Units Reference Range Abnormal Flag Comments Panel Description: Influenzae A/B Influenzae A 15:50:00 Negative for Influenzae A Negative for Influen Influenzae B 15:50:00 Negative for Influenzae B Negative for Influen Vital Signs Date / Time: Height Weight Pulse Rate Blood Pressure Temperature /15:18:00 63.88 in 200.00 lbs 148/86 mm[Hg] 97.6 F Procedures Procedure Date Unknown Encounters Encounter Location Date Patient Visit [facility] Patient Visit [facility] Patient Visit [facility] Patient Visit [facility] Patient Visit [facility] Patient Visit [facility] Patient Visit [facility] Patient Visit Conversion Patient Visit [facility] Advance Directives Directive Effective Date Unknown
--- OUTSIDE RECORDS SUMMARY | 2017-01-20 09:04 | XMS REPORT | Continuity of Care Document ---
Author Author [facility] Organization [facility] Address Unknown Phone Unavailable Allergies Medications Problems Procedures Results Encounters ACCT No. Visit Date/Time Discharge Status Pt. Type Provider Facility Loc./Unit Complaint [id number] 10/20/2013 15:14:00 10/20/2013 23 :59:59 CLS Outpatient
[2017-01-20 09:12] LABS: HCT - HEMATOCRIT 40.9 % (36-46); HGB - HEMOGLOBIN 14.3 GM/DL (12-16); MEAN CORPUSCULAR HGB 32.1 UUG (26-34); MEAN CORPUSCULAR VOLUME 91.9 UM3 (80-100); MEAN PLATELET VOLUME 10.2 UM3 (9.4-12.4); RED BLOOD COUNT 4.45 M/MM3 (4.00-5.20); WBC - WHITE BLOOD COUNT 12.6 T/MM3 (4.5-11.0)
--- NOTE | 2017-01-20 09:16 | NUR ---
STATUS PT REPORTS URGE TO VOID. PT ASSISTED TO BR WHERE PT BEGINS TO REPORT FEELING "VERY LIGHTHEADED" AND NAUSEATED. PT ASSISTED BACK TO BED WITH EMESIS BAG AND BEGINS DRY HEAVING. PROVIDER NOTIFIED.
[2017-01-20] MEDS ORDERED: IBUP-1724 PO (09:19)
[2017-01-20] MEDS ORDERED: NO ROUTINE MEDS (09:20)
[2017-01-20 09:21] LABS: ALBUMIN/GLOBULIN RATIO 1.1 RATIO (1.1-2.2); ALKALINE PHOSPHATASE 98 U/L (38-126); ALT (SGPT) 39 U/L (9-52); ANION GAP 19 MEQ/L (5-15); AST (SGOT) 36 U/L (14-36); BUN/CREATININE RATIO 33 RATIO (6-26); CALCIUM 8.9 MG/DL (8.4-10.2); CHLORIDE 99 MEQ/L (98-107); CO2 - CARBON DIOXIDE 22 MEQ/L (22-30); CREATININE 0.3 MG/DL (0.7-1.2); GLOMERULAR FILTRATION RATE 252; GLUCOSE 318 MG/DL (65-110); LIPASE 138 U/L (23-300); POTASSIUM 4.4 MEQ/L (3.6-5); SODIUM 140 MEQ/L (134-144); TOTAL PROTEIN 7.7 G/DL (6.3-8.2)
[2017-01-20] MEDS ORDERED: ONDANSETRON 4mg/2ml INJECTION IV ONE ×2 (09:30→10:30)
[2017-01-20] MEDS ORDERED: NORMAL SALINE 1,000 ML IV ONE ×2 (09:30→11:45)
[2017-01-20] MEDS ORDERED: FENTANYL 100mcg/2ml INJECTION IV ONE (09:30)
[2017-01-20 09:38] LABS: LYMPHOCYTES # (MANUAL) 0.6 T/MM3 (1-4.8); MONOCYTES # (MANUAL) 0.6 T/MM3 (0-0.8); NEUTROPHILS #(MANUAL)-ABSOLUTE 10.3 T/MM3 (1.8-7.7); TOTAL CELLS COUNTED 100 %
--- NOTE | 2017-01-20 09:42 | ERPDOC ---
Departure Disposition Decision Date: Jan 20, 2017 Disposition Decision Time: 11:10 Disposition: 02 TO [facility] Impression Impression Impression: Primary Impression: Hyperglycemia Additional Impression: Medical non-compliance Severity: Moderate Condition: Improved Seen By: Physician only Referrals: KEATON LOCKETT MD (Family) Problems/Meds/Labs Reviewed?: Yes Medications reviewed and manag: Yes Follow up care ordered?: Yes Mental Status: Alert, Oriented HPI - Abdominal Pain General Chief Complaint: Abdominal Pain Stated Complaint: ABD PAIN, BACK PAIN Time Seen by Provider: 08:54 Source: patient History/Exam Limitations: no limitations HPI - Abdominal Pain Initial Comments 36-year-old female presents to the emergency department with a chief complaint of abdominal pain. Patient noted onset of epigastric abdominal discomfort which is sharp in nature at approximately 12:30 this morning. Patient says it feels like the pain radiates toward her back. Pain is moderate in nature. Patient denies any trauma, travel, poorly prepared food, or recent antibiotic use. Patient does note that she is an insulin-dependent diabetic and has been noncompliant with her insulin regimen for the past 7 or 8 months. She was at home when her symptoms began. Symptoms have been persistent in nature since onset. Patient also notes nausea, vomiting and loose stool. She denies any blood in the stool or emesis. Patient denies any other complaints or associated symptoms. She does not note any exacerbating or remitting factors. Occurred At: home Onset: Gradual Allergies: Coded Allergies: No Known Allergies (Unverified , 03/12/16) Past History Past Medical History Metabolic: diabetes, hypercholesterolemia Female: UTI Psychological: anxiety Surgical History Reproductive/: Family History Family PMH: FOUND: CAD, diabetes, hypertension Vaccines Hx Influenza Vaccination: No Hx Pneumococcal Vaccination: No Social History Smoking Status: Never smoker Substance Use Type: does not use Alcohol Intake: none Sexuality: male partner Review of Systems Constitutional Constitutional: DENIES: chills, fever Eyes General: DENIES: erythema, exudate Lids/Accessories: DENIES: erythema, swelling Vision: DENIES: acuity, blurring ENMT Ears: DENIES: drainage, erythema Hearing: DENIES: hearing loss Balance: DENIES: ataxia, falling to one side Sinuses: DENIES: congestion, pain Nose: DENIES: nosebleeds, pain Mouth/Throat: DENIES: painful swallowing, sore throat Teeth: DENIES: pain Jaw: DENIES: pain Cardiovascular Cardiac: DENIES: chest pain, dyspnea on exertion Rhythm/Rate: DENIES: irregular beat, palpitations Vascular: DENIES: pedal edema, unilateral swelling Pulmonary Respiratory: DENIES: cough, dyspnea, pleuritic chest pain, sputum GI Upper Abdomen: nausea, pain, vomiting Lower Abdomen: diarrhea, DENIES: pain General: DENIES: dysuria, frequency Musculoskeletal General: DENIES: joint pain, tenderness Integumentary Skin: DENIES: itching, rash Neurological General: headache (typical) Psychiatric Psychiatric: DENIES: emotional instability, suicidal ideation/attempt Endocrine Endocrine: DENIES: polydipsia, polyphagia Hematologic/Lymphatic Hematologic/Lymphatic: DENIES: frequent nosebleeds, lymphadenopathy Allergic/Immunological Allergic/Immunoligical: DENIES: allergic reactions, hives Physical Exam General General Nourishment: well nourished, well developed, appears stated age, no acute distress, adult General Body Habitus: well groomed Vitals and Pain First Documented Vital Signs Date Time Temp Pulse Resp B/P Pulse Ox O2 Delivery O2 Flow Rate FiO2 01/20/17 08:42 99.2 90 14 124/64 99 Room Air Weight: Kilograms: Height (feet): 5 Height (inches): 3.00 Triage Pain Scale: RN VS reviewed by Provider: Yes Normal Exams: Head: Normocephalic w/o trauma Eyes: Pupils are PERRLA w/ EOMI, No scleral icterus, irritation, or foreign bodies noted ENMT: No facial trauma, nasal exudates, pharyngeal erythema, or exudates are noted Dental: No fractured, loose, or missing teeth noted Neck: Full range of motion, without adenopathy, JVD, bruits or thyromegaly Chest/Resp: Clear all sandra, with good airflow, and symmetry bilaterally CV: Regular rate and rhythm, without murmur or gallop, Pulses 2+ all extremities, capillary refill, <2 seconds all ext., no pedal edema noted Abdomen: Bowel sounds positive, non-distended, no hepatosplenomegaly, masses or bruits noted Lymphatic: No lymphadenopathy, or lymphedema noted Musculoskeletal: No tenderness, or deformity noted, good range of motion, all extremities Integumentary: No rashes, hives, or bruising noted, hair and nails, without abnormality Neurologic: Patient is alert, and oriented, cranial nerves, motor/sensory/ cerebellar, exams w/o gross deficits, to observation Psychiatric: Patient exhibits, appropriate attention, emotion and affect Abdomen (brief) Abdominal Brief: FOUND: soft Comments Mild tenderness to palpation in the epigastric region. No rebound or guarding. No CVA tenderness. Differential Diagnoses Considering: Constipation, IBS, Ileus, UTI, Other (DKA, Influenza, Viral Syndrome) Progress Results/Orders Orders Procedure Category Date Status Time Cbc W/Auto LAB 01/20/17 Complete Diff-Reflex Manual Cmp - Comprehensive LAB 01/20/17 Complete Metabolic Lipase LAB 01/20/17 Complete Ua, Dip Wreflex LAB 01/20/17 Complete Microsc & Auto Leasing Manager 08:54 LAB 01/20/17 Complete Qualitative, Urine 08:54 Troponin I W LAB 01/20/17 Complete Hemolysis Index Normal Saline (Normal PHA 01/20/17 Complete Saline Iv) 09:30 Ondansetron Inj PHA 01/20/17 Complete (Zofran) 09:30 Fentanyl (Fentanyl) PHA 01/20/17 Complete 09:30 Ct Abd/Pelvis CT 01/20/17 Taken W/Contrast Only 09:38 Iv Lock (Ed Only) EDM 01/20/17 Transmitted 10:02 EKG EKG 01/20/17 Taken Iohexol (Omnipaque) PHA 01/20/17 Complete 10:11 Normal Saline (Ns) PHA 01/20/17 Complete 10:11 Saline Flush (Iv PHA 01/20/17 Complete Flush) 10:11 Ondansetron Inj PHA 01/20/17 Complete (Zofran) 10:30 Place In Facility: ED ADM 01/20/17 Transmitted 11:22 Normal Saline (Normal PHA 01/20/17 In Process Saline Iv) 11:45 Lab Results Laboratory Tests Test 01/20/17 08:59 01/20/17 09:04 01/20/17 09:39 01/20/17 11:27 Glucometer 284mg/dL 241mg/dL White Blood Count 12.6T/MM3 Red Blood Count 4.45M/MM3 Hemoglobin 14.3GM/DL Hematocrit 40.9% Mean Corpuscular Volume 91.9UM3 Mean Corpuscular Hemoglobin 32.1UUG Mean Corpuscular Hemoglobin Concent 35.0GM/DL RDW Standard Deviation 44.4FL Platelet Count 206T/MM3 Mean Platelet Volume 10.2UM3 Immature Granulocyte % (Auto) % Neutrophils (%) (Auto) % Lymphocytes (%) (Auto) % Monocytes (%) (Auto) % Eosinophils (%) (Auto) % Basophils (%) (Auto) % Absolute Immature Granulocyte (auto T/MM3 Absolute Neutrophils (auto) T/MM3 Absolute Lymphocytes (auto) T/MM3 Absolute Monocytes (auto) T/MM3 Absolute Eosinophils (auto) T/MM3 Absolute Basophils (auto) T/MM3 Neutrophils % (Manual) 82.0% Band Neutrophils % 8.0% Lymphocytes % (Manual) 5.0% Monocytes % (Manual) 5.0% Absolute Neutrophils (Manual) 10.3T/MM3 Band Neutrophils # 1.0T/MM3 Lymphocytes # (Manual) 0.6T/MM3 Monocytes # (Manual) 0.6T/MM3 Red Cell Morphology Comment Normal Turbidity < 20 Sodium Level 140MEQ/L Potassium Level 4.4MEQ/L Chloride Level 99MEQ/L Carbon Dioxide Level 22MEQ/L Anion Gap 19MEQ/L Blood Urea Nitrogen 10.0MG/DL Creatinine 0.3MG/DL Glomerular Filtration Rate Calc 252 BUN/Creatinine Ratio 33RATIO Glucose Level 318MG/DL Calculated Osmolality 280MOSM/KG Calcium Level 8.9MG/DL Total Bilirubin 1.50MG/DL Icterus Index 2 Aspartate Amino Transf (AST/SGOT) 36U/L Alanine Aminotransferase (ALT/SGPT) 39U/L Alkaline Phosphatase 98U/L Troponin I < 0.012ng/ml Total Protein 7.7G/DL Albumin 4.0G/DL Globulin 3.7G/DL Albumin/Globulin Ratio 1.1RATIO Lipase 138U/L Chemistry Specimen Hemolysis 90 Urine Collection Type Cleancatch-midstream Urine Color Yellow Urine Turbidity Clear Urine pH 5.0 Urine Specific [place] 1.025 Urine Protein Negative Urine Glucose (UA) 2+ Urine Ketones 3+ Urine Blood Negative Urine Nitrite Negative Urine Bilirubin Negative Urine Urobilinogen 0.2EU/DL Urine Leukocyte Esterase Negative Urinalysis Comment Microscopic not ind. Urine Test Negative Medications Current ED Medications Sodium Chloride (Normal Saline IV) 1,000 ml @ 999 mls/hr Q1H1M ONCE IV Last administered on 01/20/17t 09:45; Start 01/20/17 at 09:30; Stop 01/20/17 at 10:30; Status DC Ondansetron HCl (Zofran) 4 mg O ONCE IV Last administered on 01/20/17 09:45; Start 01/20/17 at 09:30; Stop 01/20/17 at 09:31; Status DC Fentanyl (Fentanyl) 50 mcg O ONCE IV Last administered on 01/20/17 09:47; Start 01/20/17 at 09:30; Stop 01/20/17 at 09:31; Status DC Iohexol 1 bottle 1 bottle STK-MED ONCE .ROUTE ; Start 01/20/17 at 10:11; Stop 01/20/17 at 10:12; Status DC Sodium Chloride (NS) 100 ml @ As Directed STK-MED ONCE .ROUTE ; Start 01/20/17 at 10:11; Stop 01/20/17 at 10:12; Status DC Sodium Chloride (Iv Flush) 10 ml STK-MED ONCE .ROUTE ; Start 01/20/17 at 10:11; Stop 01/20/17 at 10:12; Status DC Ondansetron HCl (Zofran) 4 mg O ONCE IV Last administered on 01/20/17 10:33; Start 01/20/17 at 10:30; Stop 01/20/17 at 10:31; Status DC Progress Progress Labs/imaging were discussed in detail with the patient and questions are answered. Patient was given 2 L normal saline intravenously with improvement of symptoms. Once the 2nd liter of normal saline is completed the patient will have her blood sugar rechecked and if needed insulin will be administer that point by the hospitalist. Patient will be admitted to the service of the hospitalist Dr. Hedrick who is in agreement with the current plan of management. Patient is admitted secondary to uncontrolled hyperglycemia and medical noncompliance. She is admitted to the hospital in improved condition. She is in agreement with the current plan of management. There are no further orders from the accepting physician is in agreement with the current plan of management. EKG EKG : Rate: 60-100 Rhythm: sinus [place]: normal QRS: normal Intervals: normal ST/T: non-specific changes Interpreted by: signing physician CT CT : CT: Abd/Pelvis IV contrast Interpretation: Normal, Faxed Report JUVENTINO WALTER DO Jan 20, 2017 09:42
[2017-01-20 09:44] LABS: BLOOD, URINE NEGATIVE (NEGATIVE); COLOR,URINE YELLOW (YELLOW); LEUKOCYTE ESTERASE ,URINE NEGATIVE (NEGATIVE); NITRITE,URINE NEGATIVE (NEGATIVE); UROBILINOGEN,URINE 0.2 EU/DL (NORMAL)
[2017-01-20] MEDS ORDERED: IOHEXOL 300 MG/ML 100ml INJECTION ONE (10:11)
[2017-01-20] MEDS ORDERED: SALINE FLUSH 10ml SYRINGE ONE (10:11)
[2017-01-20] MEDS ORDERED: NORMAL SALINE 100 ML ONE (10:11)
--- NOTE | 2017-01-20 10:15 | NUR ---
CT PT TO CT BY CART AT THIS TIME.
--- NOTE | 2017-01-20 10:30 | NUR ---
RETURN PT RETURNED FROM CT BY CART AT THIS TIME. CT ADVISED THAT PT IS "REALLY NAUSEATED." PROVIDER NOTIFIED.
--- NOTE | 2017-01-20 10:54 | NUR ---
STATUS PT RESTING IN CART WITH EYES CLOSED. REPORTS NAUSEA HAS IMPROVED, AND HEADACHE IMPROVED AFTER HEAT APPLICATION. DENIES FURTHER NEEDS AT THIS TIME. ADVISED WAITING FOR CT REPORT. CALL LIGHT WITHIN REACH. VS STABLE, WILL CONTINUE TO MONITOR.
--- OUTSIDE RECORDS SUMMARY | 2017-01-20 11:33 | XMS REPORT | Continuity of Care Document ---
Author Author [facility] Organization [facility] Address Unknown Phone Unavailable Allergies Medications Problems Procedures Results Encounters ACCT No. Visit Date/Time Discharge Status Pt. Type Provider Facility Loc./Unit Complaint [id number] 10/20/2013 15:14:00 10/20/2013 23 :59:59 CLS Outpatient
--- NOTE | 2017-01-20 11:54 | NUR ---
ADMIT PT TAKEN TO MEDICAL UNIT, RM 138 BY W/C WITH IVF RUNNING WIDE OPEN. PT REPORTS INCREASE IN ABDOMINAL PAIN TO 5-6/10. PT TRANSFERS FROM W/C TO BED STEADILY.
[2017-01-20 11:58] VITALS: Ht 160 cm; Wt 81.9 kg
[2017-01-20 12:06] VITALS: BP 120/69; PULSE 89; RESP 18; TEMP 98.1; O2SAT 97
--- NOTE | 2017-01-20 12:15 | NUR ---
ADMIT PT ARRIVED TO ROOM 138 ON THE MEDICAL UNIT BY W/C FROM ED. REPORT RECEIVED FROM MED [facility]. PT A&OX3 AND TRANSFERS STEADILY FROM W/C TO BED. AT BEDSIDE. PT REPORTS 6/10 ABDOMINAL PAIN. IV FLUID BOLUS INFUSING THROUGH LEFT HAND IV SITE WITHOUT COMPLICATIONS. PT DENIES CHEST PAIN AND SOA. WILL CONTINUE TO MONITOR.
[2017-01-20] MEDS ORDERED: ONDANSETRON 4mg/2ml INJECTION IV PRN (12:30)
[2017-01-20] MEDS: NORMAL SALINE 1,000 ML IV SCH ×3 (12:30→23:51)
[2017-01-20] MEDS ORDERED: HYDROMORPHONE 2mg/ml INJECTION IV ONE (13:15)
--- NOTE | 2017-01-20 13:34 | HPPDOC ---
HELIO KEYS FREELANCE RECRUITER 01/20/17 1233: HPI - Adult Date DATE: 01/20/17 TIME: 12:29 General Chief Complaint: nausea, vomiting and diarrhea History of Present Illness Karely Cruz is a 36-year-old woman who began feeling poorly, shortly after midnight on 49. 17. She began having nausea, vomiting and diarrhea. She complains of abdominal pain that shoots down towards her lower back. Her abdomen is described as a dull pain, whereas the pain in her back is sharp. She complains of weakness and lightheadedness and extreme fatigue. She actually admits that she has been having abdominal pain with vomiting and diarrhea on and off for a month. She denies any fevers but complains of chills. She also notes a headache, but also reports history of migraines. She denies any respiratory symptoms. She denies any acute visual changes. She reports that her 7-year-old daughter has been having some diarrhea, otherwise no known exposures to any illnesses. She reports that she has not been taking any of her insulin for the last 7-8 months, which is when she lost her insurance (new insurance started in October, - she just hasn't had a chance to see her doctor yet). She has, however, been seeing a doctor in [place] about every 2 months for her migraines. She reports that this doctor told her that she is having migraines because of her diabetes. Each time she goes to [place], she receives IV fluids with a concoction of vitamins, including vitamin B12. These treatments have been helpful in managing her migraines and giving her more energy, but after about 2 months, her symptoms returned. The last time she saw this doctor was in September 2016. She is not taking any insulin currently, but has been taking metformin 500 mg on occasion. She has not been taking it regularly because it causes stomach upset. Because of her GI symptoms, she presented to the emergency department in the morning of 01/20/17. Labs showed leukocytosis with a white count of 12.6, and 8% bandemia. Chemistries were largely unremarkable but there was a trend towards acidosis. She was hyperglycemic with a sugar of 318 ( last A1c was 10.4% in April,, which equates to an average blood sugar of about 250). Lipase was normal but total bilirubin was slightly elevated at 1.30. UA was negative for UTI but did show ketonuria and glycosuria. She was not , and a CT scan of her abdomen/pelvis was obtained - there were no acute findings but preliminary report showed a mildly enlarged fatty liver. Given her dehydration, hyperglycemia, and mild acidosis, Dr. Hedrick accepted the patient into observation status for IVF and symptom control. Past Medical History Past Medical History Patient's Medical History: (1) Type 2 diabetes mellitus Permanent Comment: diagnosed in 2004 Last Edited By: Helio Keys on Jan 20, 2017 13:29 (2) Migraine (3) Anxiety (4) Obesity (BMI 30.0-34.9) Surgical History Patient's Surgical History: section, 04/26/09 D&C 2003 Current Medications Home Meds Reported Medications [No Routine Meds] No Conflict Check 01/20/17 Ibuprofen (Ibuprofen) 200 Mg Tablet, 2 TAB PO Q4H Y for PAIN 01/20/17 Allergies: Coded Allergies: No Known Allergies (Unverified , 03/12/16) Family History Family History: Both parents and a brother have diabetes. Maternal grandmother had cervical cancer, emphysema and heart disease. Paternal grandfather had kidney failure. Paternal grandmother had gallbladder disease. Social History Smoking Status: Never smoker Substance Use Type: does not use Alcohol Intake: none Marital Status: Number of Children: 3 Current Occupational Status: unemployed Advance Directives: No DPOA for Healthcare Only Social History Comments Primary care physician: Dr. Fitzpatrick Review of Systems Constitutional: REPORTS: appetite decrease, chills, fatigue, weakness, DENIES: fever Eyes Vision: REPORTS: blurring (without her glasses) ENMT Sinuses: NOT FOUND: congestion, rhinorrhea Mouth/Throat: DENIES: sore throat Cardiovascular DENIES: chest pain Vascular: DENIES: pedal edema Pulmonary Respiratory: DENIES: cough, dyspnea GI Upper Abdomen: nausea, pain, vomiting Lower Abdomen: diarrhea, DENIES: constipation General: DENIES: dysuria : para (3) Musculoskeletal General: weakness Integumentary Skin: DENIES: infections, rash Neurological General: headache, weakness, DENIES: memory disturbances, seizures, syncope Psychiatric Psychiatric: anxiety (hx) Allergic/Immunological DENIES: frequent infections All Other Systems All Other Systems: Reviewed (remainder of 10-point ROS Neg.) Physical Exam General General Nourishment: well nourished, well developed General Body Habitus: well groomed Vital Signs Vital Signs Date Time Temp Pulse Resp B/P Pulse Ox O2 Delivery O2 Flow Rate FiO2 01/20/17 12:06 98.1 89 18 120/69 97 Room Air Height (Feet): 5 Height (Inches): 3.00 Eyes Brief: FOUND: PERRL, NOT FOUND: scleral icterus ENMT Brief: FOUND: mucosa moist, NOT FOUND: pharnyx erythema Neck Brief: FOUND: adenopathy (mild anterior cervical lymphadenopathy), NOT FOUND: nuchal rigidity Respiratory Auscultation: FOUND: normal, NOT FOUND: rales, rhonchi, wheezes Cardiovascular Auscultation: FOUND: S1, S2, regular Murmur: FOUND: systolic (2/6) Peripheral Pulses: 2+: Dorasalis Pedis (L), Dorsalis Pedis (R), Posterior Tibial (L), Posterior Tibial (R), Radial (L), Radial (R) Edema: 0: Anasarca, Arm (L), Arm (R), Face, Leg (L), Leg (R) Abdomen Inspection: NOT FOUND: distention Palpation: FOUND: soft, tender (minimal tenderness to LUQ and LLQ), NOT FOUND: McBurney's point tender, Baptiste's sign, involuntary guarding, rebound, voluntary guarding Auscultation: FOUND: normo active Lymphatic (brief) Lymphatic Brief: NOT FOUND: adenopathy Integumentary (brief) Integumentary Brief: FOUND: dry, pink, warm Integumentary General: FOUND: dry, warm Color: FOUND: pink Neurologic (brief) Neurological Brief: FOUND: cranial 2-12 intact (grossly) Neurologic GCS Eye Opening: (4)Spontaneous GCS Verbal: (5)Oriented GCS Motor: (6)Obeys Commands RN Documented GCS Total: 15 Psychiatric (brief) FOUND: alert, attentive, normal affect, oriented Laboratory Laboratory Tests Test 01/20/17 08:59 01/20/17 09:04 01/20/17 09:39 01/20/17 11:27 Glucometer 284mg/dL 241mg/dL White Blood Count 12.6T/MM3 Red Blood Count 4.45M/MM3 Hemoglobin 14.3GM/DL Hematocrit 40.9% Mean Corpuscular Volume 91.9UM3 Mean Corpuscular Hemoglobin 32.1UUG Mean Corpuscular Hemoglobin Concent 35.0GM/DL RDW Standard Deviation 44.4FL Platelet Count 206T/MM3 Mean Platelet Volume 10.2UM3 Immature Granulocyte % (Auto) % Neutrophils (%) (Auto) % Lymphocytes (%) (Auto) % Monocytes (%) (Auto) % Eosinophils (%) (Auto) % Basophils (%) (Auto) % Absolute Immature Granulocyte (auto T/MM3 Absolute Neutrophils (auto) T/MM3 Absolute Lymphocytes (auto) T/MM3 Absolute Monocytes (auto) T/MM3 Absolute Eosinophils (auto) T/MM3 Absolute Basophils (auto) T/MM3 Neutrophils % (Manual) 82.0% Band Neutrophils % 8.0% Lymphocytes % (Manual) 5.0% Monocytes % (Manual) 5.0% Absolute Neutrophils (Manual) 10.3T/MM3 Band Neutrophils # 1.0T/MM3 Lymphocytes # (Manual) 0.6T/MM3 Monocytes # (Manual) 0.6T/MM3 Red Cell Morphology Comment Normal Turbidity < 20 Sodium Level 140MEQ/L Potassium Level 4.4MEQ/L Chloride Level 99MEQ/L Carbon Dioxide Level 22MEQ/L Anion Gap 19MEQ/L Blood Urea Nitrogen 10.0MG/DL Creatinine 0.3MG/DL Glomerular Filtration Rate Calc 252 BUN/Creatinine Ratio 33RATIO Glucose Level 318MG/DL Calculated Osmolality 280MOSM/KG Calcium Level 8.9MG/DL Total Bilirubin 1.50MG/DL Icterus Index 2 Aspartate Amino Transf (AST/SGOT) 36U/L Alanine Aminotransferase (ALT/SGPT) 39U/L Alkaline Phosphatase 98U/L Troponin I < 0.012ng/ml Total Protein 7.7G/DL Albumin 4.0G/DL Globulin 3.7G/DL Albumin/Globulin Ratio 1.1RATIO Lipase 138U/L Chemistry Specimen Hemolysis 90 Urine Collection Type Cleancatch-midstream Urine Color Yellow Urine Turbidity Clear Urine pH 5.0 Urine Specific [place] 1.025 Urine Protein Negative Urine Glucose (UA) 2+ Urine Ketones 3+ Urine Blood Negative Urine Nitrite Negative Urine Bilirubin Negative Urine Urobilinogen 0.2EU/DL Urine Leukocyte Esterase Negative Urinalysis Comment Microscopic not ind. Urine Test Negative Assessment & Plan Problems: (1) Vomiting and diarrhea Status: Acute (2) Elevated blood sugar Status: Acute (3) Dehydration Status: Acute Assessment & Plan: 3+ ketonuria (4) Hyperbilirubinemia Status: Acute Assessment & Plan: POA (5) Type 2 diabetes mellitus Status: Chronic Qualifiers: Diabetes mellitus complication status: with hyperglycemia Diabetes mellitus long term care social worker insulin use: with long term care social worker use Qualified Codes: E11.65 - Type 2 diabetes mellitus with hyperglycemia; Z79.4 - rat exterminator (current) use of insulin (6) Cardiac murmur Status: Chronic (7) Anxiety Status: Chronic (8) Obesity (BMI 30.0-34.9) Status: Chronic Plan/Intensity of Service Admit to observation status under the hospitalist service. 1. Hyperglycemia with history of type 2 diabetes. * Continue with IV fluids. * Monitor blood sugars. Last hemoglobin A1c per Dr. Fitzpatrick was 10.4%. On . We'll repeat an A1c today. * In [facility] note in April 2016, she was prescribed glipizide 5 mg daily, metformin 500 mg twice a day, Lantus 20 units at night, and Humalog 22 units with meals. Since then, the only medication she has been taking is metformin, which was prescribed by a doctor in [place]. She admits that she has not been taking this routinely - it tends to cause stomach problems. * Consult case management to review which medications are covered with her insurance. * Consider outpatient diabetic education. 2. Nausea, vomiting, diarrhea and dehydration. * IV fluids, Zofran as needed. Dilaudid to be used sparingly. * Check GI panel. * Diet: Clear liquid. 3. Hyperbilirubinemia. * Patient describes symptoms concerning for gallbladder disease including intermittent abdominal pain, nausea, vomiting and diarrhea 1 month. * Will obtain gallbladder sono tomorrow morning. NPO at midnight 4. Systolic murmur * Denies previous knowledge of cardiac murmur. Recommend further evaluation in outpatient setting. DVT Prophylaxis: SCD'S Code Status Full Code Hospital Course Summary Disclaimer The hospital course summary below is not to be considered part of the above Progress Note. Hospital Course Summary 01/20/17 Admit to observation status under the hospitalist service. 1. Hyperglycemia with history of type 2 diabetes. * Continue with IV fluids. * Monitor blood sugars. Last hemoglobin A1c per Dr. Fitzpatrick was 10.4%. On 78. 16. We'll repeat an A1c today. * In [facility] note in April 2016, she was prescribed glipizide 5 mg daily, metformin 500 mg twice a day, Lantus 20 units at night, and Humalog 22 units with meals. Since then, the only medication she has been taking is metformin, which was prescribed by a doctor in [place]. She admits that she has not been taking this routinely - it tends to cause stomach problems. * Consult case management to review which medications are covered with her insurance. * Consider outpatient diabetic education. 2. Nausea, vomiting, diarrhea and dehydration. * IV fluids, Zofran as needed. Dilaudid to be used sparingly. * Check GI panel. * Diet: Clear liquid. 3. Hyperbilirubinemia. * Patient describes symptoms concerning for gallbladder disease including intermittent abdominal pain, nausea, vomiting and diarrhea 1 month. * Will obtain gallbladder sono tomorrow morning. NPO at midnight 4. Systolic murmur * Denies previous knowledge of cardiac murmur. Recommend further evaluation in outpatient setting. JASWINDER HEDRICK MD 01/20/17 1616: Past Medical History Current Medications Home Meds Reported Medications [No Routine Meds] No Conflict Check 01/20/17 Ibuprofen (Ibuprofen) 200 Mg Tablet, 2 TAB PO Q4H Y for PAIN 01/20/17 Allergies: Coded Allergies: No Known Allergies (Unverified , 03/12/16) Assessment & Plan Problems: (1) Vomiting and diarrhea Status: Acute (2) Elevated blood sugar Status: Acute (3) Dehydration Status: Acute Assessment & Plan: 3+ ketonuria (4) Hyperbilirubinemia Status: Acute Assessment & Plan: POA (5) Type 2 diabetes mellitus Status: Chronic Qualifiers: Diabetes mellitus complication status: with hyperglycemia Diabetes mellitus long term care social worker insulin use: with senior living use Qualified Codes: E11.65 - Type 2 diabetes mellitus with hyperglycemia; Z79.4 - [facility] (current) use of insulin Assessment & Plan: A1C 12.0 on admissions; poor compliance with rx (6) Cardiac murmur Status: Chronic (7) Anxiety Status: Chronic (8) Obesity (BMI 30.0-34.9) Status: Chronic Assessment I have independently evaluated and examined this patient. I reviewed the chart, the patient's history, and the FREELANCE RECRUITER's documented findings as above. We discussed and formulated the assessment and plan as above with additions as below: Amena describes 4-6 months of intermittent nausea and vomiting with increased emesis today. She denies hematemesis or bilious emesis. Diarrhea is also currently reported intermittently without rectal bleeding. She's been on no recent antibiotics. Abdominal pain is primarily left sided as previously noted. Examination is notable for alert female was able to provide historical information. Anicteric sclera and moist oral membranes. Abdomen is soft with mild tenderness in the left upper/left lower quadrants but no guarding. Bowel sounds are present but hypoactive. A1c is currently 12.0 and has consistently been above 10 in the office. Chronic component of GI symptoms may be attributable to metformin or diabetic gastroparesis. CT of the abdomen/pelvis reviewed by myself and without worrisome findings. Bilirubin to be fractionated but likely of no consequence. Will resume Lantus at 20 units at bedtime and add corrective insulin today to stabilize hyperglycemia. Repeat urine ketones in the morning. May require addition of D5 to fluids if blood sugars drop rapidly. Diabetes education in diabetes education ordered. If ongoing diarrhea will check stool studies. Plan/Intensity of Service CT reviewed by myself. Labs reviewed, d/w Dr. Zuniga. Outpt records reviewed. HELIO KEYS FREELANCE RECRUITER Jan 20, 2017 12:33 JASWINDER HEDRICK MD Jan 20, 2017 16:16
[2017-01-20] MEDS ORDERED: ACETAMINOPHEN 500 MG TABLET PO PRN (15:30)
[2017-01-20 15:59] VITALS: BP 118/64; PULSE 94; RESP 18; TEMP 97.6; O2SAT 97
[2017-01-20] MEDS ORDERED: GLUCOSE ORAL GEL 40% 37.5 G TUBE PO PRN (16:00)
[2017-01-20] MEDS: INSULIN ASPART 100 UNIT/ML SQ PRN ×2 (16:38→21:25)
[2017-01-20 16:48] LABS: ANION GAP 20 MEQ/L (5-15); BUN/CREATININE RATIO 25 RATIO (6-26); CALCIUM 9.2 MG/DL (8.4-10.2); CHLORIDE 100 MEQ/L (98-107); CO2 - CARBON DIOXIDE 20 MEQ/L (22-30); CREATININE 0.4 MG/DL (0.7-1.2); GLOMERULAR FILTRATION RATE 181; GLUCOSE 320 MG/DL (65-110); MAGNESIUM 1.6 MG/DL (1.6-2.3); PHOSPHORUS 3.2 MG/DL (2.5-4.5); POTASSIUM 4.6 MEQ/L (3.6-5); SODIUM 140 MEQ/L (134-144)
[2017-01-20] MEDS ORDERED: KETOROLAC 30mg/ml INJECTION IV ONE (17:45)
--- NOTE | 2017-01-20 18:40 | NUR ---
SUMMARY PT HAS COMPLAINED OF NAUSEA FOR WHICH IV ZOFRAN WAS GIVEN BUT HAS HAD NO VOMITING OR DIARRHEA. PT COMPLAINS OF ABDOMINAL PAIN, BACK PAIN AND HEADACHE FOR WHICH TYLENOL,IV DILAUDID AND IV TORADOL WERE GIVEN IN ADDITION TO A HOT PACK. PT REPORTS SOME RELIEF. SLIDING SCALE INSULIN GIVEN. NS INFUSING CHARTED THROUGH THE LEFT HAND IV SITE WITHOUT COMPLICATION. FAMILY AT BEDSIDE.
[2017-01-20] MEDS: INSULIN GLARGINE 100 UNIT/ML SQ SCH ×2 (21:25→21:26)
--- NOTE | 2017-01-20 22:10 | NUR ---
status Pt A/O x3, stable on RA. Pt ambulating well with standby assist, walked around unit this evening, denies SOA. Pt stating still has mild headache, denies want for any meds at this time, she does know what meds she has available for her when she wants them. Urine output good for shift, no BM. Pt trying broth this evening, knows she will be NPO after midnight.
[2017-01-21] VITALS: BP 112/60; PULSE 81; RESP 18; TEMP 97.6; O2SAT 99
--- NOTE | 2017-01-21 00:25 | NUR ---
NPO PT IS NPO FROM MIDNIGHT. SHE IS AWARE OF THE PROCEDURE IN THE MORNING. IN BED SLEEPING AT THE MOMENT.
[2017-01-21 05:15] LABS: BASOPHILS % (AUTO) 0.2 % (0-2); EOSINOPHILS # (AUTO) 0.2 T/MM3 (0-0.5); EOSINOPHILS % (AUTO) 3.3 % (0-4); HCT - HEMATOCRIT 35.4 % (36-46); IMMATURE GRANULOCYTE # (AUTO) 0.02 T/MM3 (0.00-0.03); IMMATURE GRANULOCYTE % (AUTO) 0.4 % (0.0-0.5); LYMPHOCYTES # (AUTO) 1.3 T/MM3 (1-4.8); LYMPHOCYTES % (AUTO) 24.2 % (23-45); MEAN CORPUSCULAR HGB 31.6 UUG (26-34); MEAN CORPUSCULAR HGB CONC(MCHC 33.9 GM/DL (31-37); MEAN CORPUSCULAR VOLUME 93.2 UM3 (80-100); MEAN PLATELET VOLUME 10.3 UM3 (9.4-12.4); MONOCYTES # (AUTO) 0.7 T/MM3 (0-0.8); MONOCYTES % (AUTO) 12.7 % (0-9.0); NEUTROPHILS #(AUTO)-ABSOLUTE 3.2 T/MM3 (1.8-7.7); NEUTROPHILS % (AUTO) 59.2 % (33-66); WBC - WHITE BLOOD COUNT 5.5 T/MM3 (4.5-11.0)
[2017-01-21 05:26] LABS: ALBUMIN 2.9 G/DL (3.5-5.0); ALKALINE PHOSPHATASE 70 U/L (38-126); ALT (SGPT) 45 U/L (9-52); ANION GAP 14 MEQ/L (5-15); AST (SGOT) 34 U/L (14-36); BUN/CREATININE RATIO 13 RATIO (6-26); CALCIUM 7.7 MG/DL (8.4-10.2); CHLORIDE 105 MEQ/L (98-107); CO2 - CARBON DIOXIDE 23 MEQ/L (22-30); CREATININE 0.3 MG/DL (0.7-1.2); GLOMERULAR FILTRATION RATE 252; GLUCOSE 211 MG/DL (65-110); POTASSIUM 3.1 MEQ/L (3.6-5); SODIUM 142 MEQ/L (134-144); TOTAL PROTEIN 5.8 G/DL (6.3-8.2)
[2017-01-21] MEDS: INSULIN ASPART 100 UNIT/ML SQ PRN ×4 (06:47→17:34)
--- NOTE | 2017-01-21 06:48 | NUR ---
SUMMARY PT IN BED SLEEPING. AT BEDSIDE. PT IS ALERT AND ORIENTED. ABLE TO VOICE NEEDS TO THE STAFFS. PT SLEPT WELL ALL NIGHT. CONTINUES ON IV FLUIDS THAT SHE TOLERATES WELL. AMBULATES SELF IN THE ROOM. PT WAS EDUCATED ABOUT THE NPO STATUS. AWARE OF THE PROCEDURE THIS MORNING.
[2017-01-21] MEDS ORDERED: POTASSIUM CHLORIDE 10 MEQ in WATER FOR INJECTION 100 ML IV SCH (07:00)
[2017-01-21 08:00] VITALS: BP 114/61; PULSE 82; RESP 18; TEMP 96.8; O2SAT 98
--- NOTE | 2017-01-21 08:21 | DI ---
Indication: ITS.REASON: epigastric pain PROCEDURE: CT ABD/PELVIS W/CONTRAST ONLY: Encounter: Initial Comparison: None Technique: Axial CT images were performed through the abdomen and pelvis after the administration of intravenous contrast. Coronal and sagittal two-dimensional reformats. Automated Exposure Control and Iterative Reconstruction dose reducing techniques were utilized. Contrast: Omnipaque 300 100 mL Findings: The lung bases are clear. The liver is decreased in attenuation consistent with fatty infiltration. No enhancing mass or bile duct dilatation. The gallbladder is normal. The spleen, pancreas and adrenal glands are within normal limits. Kidneys are normal. No abdominal or pelvic adenopathy. Bladder is normal. Uterus and ovaries are normal for age. No free fluid. No evidence of a bowel obstruction. Bone windows are unremarkable. Impression: No acute disease process seen. Hepatic steatosis. There is a preliminary report by [facility]. .
--- NOTE | 2017-01-21 09:34 | DI ---
Indication: ITS.REASON: Abd pain, elevated bili. PROCEDURE: US GALLBLADDER: Encounter: Initial Comparison: None Technique: Grayscale and color Doppler sonographic imaging of the right upper quadrant of the abdomen was performed. Findings: Hepatic parenchyma is echogenic without evidence for focal mass. The gallbladder is normal. There is no wall thickening, pericholecystic fluid, sonographic Baptiste's sign or cholelithiasis. Both the intra and extrahepatic biliary system are of normal caliber with the common duct measuring 2 mm in dimension. Visualized portions of the head and body of the pancreas are. The right kidney is present without collecting system dilatation. The right kidney measures 13.5 cm in length. Impression: Probable hepatic steatosis. Normal gallbladder. .
[2017-01-21] MEDS: NORMAL SALINE 1,000 ML IV SCH (10:41)
--- NOTE | 2017-01-21 10:56 | NUR ---
JESSEE CM VISITED PT. CM EXPLAINED ROLE AND PROVIDED CONTACT INFORMATION. PT PLANS TO RETURN HOME POST HOSPITAL STAY. PT IS AWARE TO CONTACT CM IF NEEDS ARISE.
[2017-01-21] MEDS ORDERED: INSU100V8 SQ (11:08)
[2017-01-21] MEDS ORDERED: METO-230 PO (11:08)
[2017-01-21] MEDS ORDERED: METF500T4 PO (11:08)
[2017-01-21] MEDS ORDERED: INSU100V SQ (11:08)
[2017-01-21] MEDS ORDERED: INSU100V13 SQ (11:13)
[2017-01-21] MEDS: POTASSIUM CHLORIDE 10 MEQ, LIDOCAINE 1% 10 MG in NORMAL SALINE 100 ML IV SCH ×3 (11:14→14:03)
--- NOTE | 2017-01-21 12:45 | NUR ---
DIABETES EDUCATION Met with patient regarding restarting insulin and glucose monitoring. Sample Novolog vials provided by Dr. Delgado's office. Sample syringes # 20 provided. Denies problems giving injections. Has used vial and syringe before. Injects in abdomen and arms. No hypertrophy palpable. Rotates sites. Discussed home schedule for Novolog with meals and Lantus at 8 pm. Reviewed signs/symptoms and treatment of hypoglycemia. Verbalizes understanding. Provided with Contour Next meter and 10 sample strips. health spa manager will help getting new prescription. Reviewed blood sugar goals according to [place] [employer] recommendations - before meals 80-130 mg/dl and 1-2 hours after meals less than 180 mg/dl. A1c goal is 7% unless otherwise stated by physician. Says that she plans to test 4 times daily. Log book provided. Outpatient brochure and business card given. CDE may be reached at [phone].
--- NOTE | 2017-01-21 13:22 | NUR ---
CM CM DISCUSSED MEDICATION NEEDS WITH PT. CM CONSULTED [facility] FOR INSULIN NEEDS. NOVOLOG [address] SHEIKH OFFICE. GLUCOMETER/STRIPS AND SYRINGES WELL. PT WILL FIELD AIDE LANTUS [facility] .. PT WILL FOLLOW UP WITH DR LOCKETT AND DR SHEIKH POST STAY AT [facility] [place]. PT HAS SCRIPTS FOR TESTING STRIPS/SYRINGES. PT STATES SHE HAS LANCETS. PT IS AWARE TO CONTACT CM IF NEEDS ARISE.
--- NOTE | 2017-01-21 14:17 | NUR ---
DM screen Diet: [id number]; JONATHON visited patient, who was enjoying a meal after several days with no food. There were several family members in the room. The pt states she has had DM 4-5 years, and has had previous education. JONATHON stated she would come back later. Addendum: 01/21/17 at [address] JONATHON attempted to visit with patient, who had numerous family members in her room. She states that she has had previous DSME, and knows how to take her medications and how to eat. She declines furthers MNT at this time.
--- NOTE | 2017-01-21 16:29 | DSPDOC ---
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 01/21/17 1627: General Date Date DATE: 01/21/17 TIME: 16:20 Attending Physician Tomy Webster MD Admitting Physician Tomy Webster MD Consulting Physician Admitting Diagnosis N/V/D - resolved DM2 uncontrolled Discharge Diagnosis N/V/D - resolved DM2 uncontrolled hypokalemia Laboratory Laboratory Tests Test 01/20/17 08:59 01/20/17 09:04 01/20/17 09:39 01/20/17 11:27 Glucometer 284mg/dL (65-110) 241mg/dL (65-110) White Blood Count 12.6T/MM3 (4.5-11.0) Red Blood Count 4.45M/MM3 (4.00-5.20) Hemoglobin 14.3GM/DL (12-16) Hematocrit 40.9% (36-46) Mean Corpuscular Volume 91.9UM3 (80-100) Mean Corpuscular Hemoglobin 32.1UUG (26-34) Mean Corpuscular Hemoglobin Concent 35.0GM/DL (31-37) RDW Standard Deviation 44.4FL (36.9-50.2) Platelet Count 206T/MM3 (130-400) Mean Platelet Volume 10.2UM3 (9.4-12.4) Immature Granulocyte % (Auto) % (0.0-0.5) Neutrophils (%) (Auto) % (33-66) Lymphocytes (%) (Auto) % (23-45) Monocytes (%) (Auto) % (0-9.0) Eosinophils (%) (Auto) % (0-4) Basophils (%) (Auto) % (0-2) Absolute Immature Granulocyte (auto T/MM3 (0.00-0.03) Absolute Neutrophils (auto) T/MM3 (1.8-7.7) Absolute Lymphocytes (auto) T/MM3 (1-4.8) Absolute Monocytes (auto) T/MM3 (0-0.8) Absolute Eosinophils (auto) T/MM3 (0-0.5) Absolute Basophils (auto) T/MM3 (0-0.2) Neutrophils % (Manual) 82.0% (33-66) Band Neutrophils % 8.0% (0-6) Lymphocytes % (Manual) 5.0% (23-45) Monocytes % (Manual) 5.0% (0-9.0) Absolute Neutrophils (Manual) 10.3T/MM3 (1.8-7.7) Band Neutrophils # 1.0T/MM3 Lymphocytes # (Manual) 0.6T/MM3 (1-4.8) Monocytes # (Manual) 0.6T/MM3 (0-0.8) Red Cell Morphology Comment Normal Turbidity < 20 (0-20) Sodium Level 140MEQ/L (134-144) Potassium Level 4.6MEQ/L (3.6-5) Chloride Level 100MEQ/L (98-107) Carbon Dioxide Level 20MEQ/L (22-30) Anion Gap 20MEQ/L (5-15) Blood Urea Nitrogen 10.0MG/DL (7-17) Creatinine 0.4MG/DL (0.7-1.2) Glomerular Filtration Rate Calc 181 BUN/Creatinine Ratio 25RATIO (6-26) Glucose Level 320MG/DL (65-110) Hemoglobin A1c 12.0% (6.1-7.9) Calculated Osmolality 280MOSM/KG (261-280) Calcium Level 9.2MG/DL (8.4-10.2) Phosphorus Level 3.2MG/DL (2.5-4.5) Magnesium Level 1.6MG/DL (1.6-2.3) Total Bilirubin 1.50MG/DL (0.20-1.30) Conjugated Bilirubin 0.00MG/DL (0.00-0.30) Unconjugated Bilirubin 0.70MG/DL (0.00-1.10) Icterus Index < 2 (0-7) Aspartate Amino Transf (AST/SGOT) 36U/L (14-36) Alanine Aminotransferase (ALT/SGPT) 39U/L (9-52) Alkaline Phosphatase 98U/L (38-126) Troponin I < 0.012ng/ml (0-0.12) Total Protein 7.7G/DL (6.3-8.2) Albumin 4.0G/DL (3.5-5.0) Globulin 3.7G/DL (2.4-3.6) Albumin/Globulin Ratio 1.1RATIO (1.1-2.2) Lipase 138U/L (23-300) Thyroid Stimulating Hormone (TSH) 1.95MIU/L (0.47-4.68) Chemistry Specimen Hemolysis 81 (0-25) Urine Collection Type Cleancatch-midstream Urine Color Yellow (YELLOW) Urine Turbidity Clear (CLEAR) Urine pH 5.0 (5.0-8.0) Urine Specific [place] 1.025 (1.015-1.025) Urine Protein Negative (NEGATIVE) Urine Glucose (UA) 2+ (NEGATIVE) Urine Ketones 3+ (NEGATIVE) Urine Blood Negative (NEGATIVE) Urine Nitrite Negative (NEGATIVE) Urine Bilirubin Negative (NEGATIVE) Urine Urobilinogen 0.2EU/DL (NORMAL) Urine Leukocyte Esterase Negative (NEGATIVE) Urinalysis Comment Microscopic not ind. Urine Test Negative (NEGATIVE) Test 01/20/17 13:33 01/20/17 20:10 01/21/17 04:40 01/21/17 05:57 Glucometer 274mg/dL (65-110) 218mg/dL (65-110) 197mg/dL (65-110) White Blood Count 5.5T/MM3 (4.5-11.0) Red Blood Count 3.80M/MM3 (4.00-5.20) Hemoglobin 12.0GM/DL (12-16) Hematocrit 35.4% (36-46) Mean Corpuscular Volume 93.2UM3 (80-100) Mean Corpuscular Hemoglobin 31.6UUG (26-34) Mean Corpuscular Hemoglobin Concent 33.9GM/DL (31-37) RDW Standard Deviation 44.8FL (36.9-50.2) Platelet Count 181T/MM3 (130-400) Mean Platelet Volume 10.3UM3 (9.4-12.4) Immature Granulocyte % (Auto) 0.4% (0.0-0.5) Neutrophils (%) (Auto) 59.2% (33-66) Lymphocytes (%) (Auto) 24.2% (23-45) Monocytes (%) (Auto) 12.7% (0-9.0) Eosinophils (%) (Auto) 3.3% (0-4) Basophils (%) (Auto) 0.2% (0-2) Absolute Immature Granulocyte (auto 0.02T/MM3 (0.00-0.03) Absolute Neutrophils (auto) 3.2T/MM3 (1.8-7.7) Absolute Lymphocytes (auto) 1.3T/MM3 (1-4.8) Absolute Monocytes (auto) 0.7T/MM3 (0-0.8) Absolute Eosinophils (auto) 0.2T/MM3 (0-0.5) Absolute Basophils (auto) 0.0T/MM3 (0-0.2) Turbidity < 20 (0-20) Sodium Level 142MEQ/L (134-144) Potassium Level 3.1MEQ/L (3.6-5) Chloride Level 105MEQ/L (98-107) Carbon Dioxide Level 23MEQ/L (22-30) Anion Gap 14MEQ/L (5-15) Blood Urea Nitrogen 4.0MG/DL (7-17) Creatinine 0.3MG/DL (0.7-1.2) Glomerular Filtration Rate Calc 252 BUN/Creatinine Ratio 13RATIO (6-26) Glucose Level 211MG/DL (65-110) Calculated Osmolality 276MOSM/KG (261-280) Calcium Level 7.7MG/DL (8.4-10.2) Total Bilirubin 0.90MG/DL (0.20-1.30) Icterus Index < 2 (0-7) Aspartate Amino Transf (AST/SGOT) 34U/L (14-36) Alanine Aminotransferase (ALT/SGPT) 45U/L (9-52) Alkaline Phosphatase 70U/L (38-126) Total Protein 5.8G/DL (6.3-8.2) Albumin 2.9G/DL (3.5-5.0) Globulin 2.9G/DL (2.4-3.6) Albumin/Globulin Ratio 1.0RATIO (1.1-2.2) Chemistry Specimen Hemolysis < 15 (0-25) Test 01/21/17 10:16 01/21/17 12:59 01/21/17 13:00 Glucometer 194mg/dL (65-110) 237mg/dL (65-110) Urine Ketones 3+ (NEGATIVE) Radiology Abdomen and pelvis CT: No acute disease process. Hepatic steatosis. Gallbladder ultrasound: Probable hepatic steatosis. Normal gallbladder. History of Present Illness Karely Cruz is a 36-year-old woman who began feeling poorly, shortly after midnight on 49. 17. She began having nausea, vomiting and diarrhea. She complains of abdominal pain that shoots down towards her lower back. Her abdomen is described as a dull pain, whereas the pain in her back is sharp. She complains of weakness and lightheadedness and extreme fatigue. She actually admits that she has been having abdominal pain with vomiting and diarrhea on and off for a month. She denies any fevers but complains of chills. She also notes a headache, but also reports history of migraines. She denies any respiratory symptoms. She denies any acute visual changes. She reports that her 7-year-old daughter has been having some diarrhea, otherwise no known exposures to any illnesses. She reports that she has not been taking any of her insulin for the last 7-8 months, which is when she lost her insurance (new insurance started in October, - she just hasn't had a chance to see her doctor yet). She has, however, been seeing a doctor in [place] about every 2 months for her migraines. She reports that this doctor told her that she is having migraines because of her diabetes. Each time she goes to [place], she receives IV fluids with a concoction of vitamins, including vitamin B12. These treatments have been helpful in managing her migraines and giving her more energy, but after about 2 months, her symptoms returned. The last time she saw this doctor was in September 2016. She is not taking any insulin currently, but has been taking metformin 500 mg on occasion. She has not been taking it regularly because it causes stomach upset. Because of her GI symptoms, she presented to the emergency department in the morning of 01/20/17. Labs showed leukocytosis with a white count of 12.6, and 8% bandemia. Chemistries were largely unremarkable but there was a trend towards acidosis. She was hyperglycemic with a sugar of 318 ( last A1c was 10.4% in April,, which equates to an average blood sugar of about 250). Lipase was normal but total bilirubin was slightly elevated at 1.30. UA was negative for UTI but did show ketonuria and glycosuria. She was not , and a CT scan of her abdomen/pelvis was obtained - there were no acute findings but preliminary report showed a mildly enlarged fatty liver. Given her dehydration, hyperglycemia, and mild acidosis, Dr. Hedrick accepted the patient into observation status for IVF and symptom control. Hospital Course Patient was admitted to observation status for hyperglycemia associated type 2 diabetes, nausea, vomiting and diarrhea, and abdominal pain. A1c was rechecked, and was noted to be 12%. She was started on sliding scale insulin and was given IV fluids. She never had any diarrhea after arrival to send it for GI panel. Abdominal pain improved with administration of IV analgesics, but she continued to have her chronic global headache, even on day of discharge. By 01/21/17, she was able to tolerate oral intake. Gallbladder sono was obtained, which was negative. Total bilirubin decreased from 1.30 to a normal level of 0.9. However , her potassium dropped down to 3.1, and this was replaced intravenously. museum educator was consulted. We checked with insurance, to ensure that her medications would be covered. She was started on metformin 500 mg daily, Lantus 20 units at night, NovoLog 22 units with meals, which is with Dr. Fitzpatrick had prescribed in April. We also provided a prescription for Reglan 10 mg to take before meals and at bedtime - there is a possibility that she was having some diabetic gastroparesis. The patient plans follow-up with Dr. Fitzpatrick in about a week (will likely need repeat labs to follow-up on hypokalemia), and also plans on following up with Dr. Sheikh for diabetic management. She was noted to have a systolic murmur on evaluation, and outpatient follow-up is recommended. We also discussed her headache, and she states she has tried different prescriptions in the past, none of which have been successful. The patient verbalized an understanding of diabetic discharge instructions. On day of discharge, her abdomen was soft and nontender, she had positive bowel sounds, and her lungs were clear. Problems: (1) Hypokalemia Status: Acute (2) Elevated blood sugar Status: Acute (3) Vomiting and diarrhea Status: Resolved (4) Dehydration Status: Acute Assessment & Plan: 3+ ketonuria (5) Hyperbilirubinemia Status: Resolved Assessment & Plan: POA (6) Type 2 diabetes mellitus Status: Chronic Assessment & Plan: A1C 12.0 on admissions; poor compliance with rx (7) Cardiac murmur Status: Chronic (8) Anxiety Status: Chronic (9) Obesity (BMI 30.0-34.9) Status: Chronic Code Status Full Code Home Meds Active Scripts Insulin Aspart (Novolog) 100 Unit/Ml Inj, 22 UNIT SQ AC15 for 30 Days, VIAL Prov:HELIO KEYS APRN 01/21/17 Metoclopramide HCl (Reglan) 10 Mg Tablet, 10 MG PO ACHS for 7 Days, #28 TAB Take 1 tablet, by mouth, 4 times a day (with meals and bedtime). Prov:HELIO KEYS APRN 01/21/17 Insulin Glargine,Hum.rec.anlog (Lantus) 100 Unit/Ml Inj, 20 UNIT SQ HS for 30 Days, VIAL Prov:HELIO KEYS APRN 01/21/17 Metformin HCl (Metformin HCl) 500 Mg Tablet, 500 MG PO WB for 30 Days, #30 TAB Take one tablet, by mouth, one time a day with breakfast. Prov:HELIO KEYS APRN 01/21/17 Reported Medications [No Routine Meds] No Conflict Check 01/20/17 Ibuprofen (Ibuprofen) 200 Mg Tablet, 2 TAB PO Q4H Y for PAIN 01/20/17 Face to Face Encounter I met with patient on the day of dismissal and discussed follow up appointments , medications, and safety plan. Discharge Disposition Discharged home, stable Copies To 1: KEATON FITZPATRICK MD Copies To 2: CORINA SHEIKH MD Documentation Requirements Documenting Diagnosis BMI Low or High, Diabetes BMI Low or High Assoc. dx for low or high BMI: Obesity 30-34.9 Diabetes Diabetes Type: Type 2 Diabetes Is Diabetes Contolled?: Uncontolled Related to Diabetes: Unable to determine TOMY WEBSTER MD 01/21/17 1644: Hospital Course Home Meds Active Scripts Insulin Aspart (Novolog) 100 Unit/Ml Inj, 22 UNIT SQ AC15 for 30 Days, VIAL Prov:HELIO KESY APRN 01/21/17 Metoclopramide HCl (Reglan) 10 Mg Tablet, 10 MG PO ACHS for 7 Days, #28 TAB Take 1 tablet, by mouth, 4 times a day (with meals and bedtime). Prov:HELIO KEYS APRN 01/21/17 Insulin Glargine,Hum.rec.anlog (Lantus) 100 Unit/Ml Inj, 20 UNIT SQ HS for 30 Days, VIAL Prov: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 01/21/17 Metformin HCl (Metformin HCl) 500 Mg Tablet, 500 MG PO WB for 30 Days, #30 TAB Take one tablet, by mouth, one time a day with breakfast. Prov: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 01/21/17 Reported Medications [No Routine Meds] No Conflict Check 01/20/17 Ibuprofen (Ibuprofen) 200 Mg Tablet, 2 TAB PO Q4H Y for PAIN 01/20/17 Face to Face Encounter Have independently interviewed and examined pt. Chart reviewed. Case discussed with CM and my DRAY TRUCK DRIVER. Care plan developed with my supervision; agree with above. Doing much better. Keeping liquids down well. Appetite increasing. Breathing well. Ambulating well. Notes BROUSSARD-posterior aspect of skull, radiated to front. Neck: supple, midline. Point tender where trapezius attaches to skull. Lungs:clear CV: regular MSE: awake alert appropriate Plan: May d/c to home. Continue DM medications as outlined. Encourage diabetic diet and activities. Recommend topical aspercreme to help decrease pain; also encourage and described gentle ROM/stretching techniques for neck and shoulders. F/U with Dr Fitzpatrick in 1 week for medical care and Dr Sheikh in near future for diabetes. See orders for details. Copies To 1: KEATON FITZPATRICK MD Copies To 2: CORINA SHEIKH MD, KAREN D DRAY TRUCK DRIVER Jan 21, 2017 16:27 TOMY WEBSTER MD Jan 21, 2017 16:44
[2017-01-21 16:49] VITALS: BP 114/65; PULSE 80; RESP 14; TEMP 97.4; O2SAT 97
--- NOTE | 2017-01-21 18:00 | NUR ---
DISMISSAL PT DISMISSED TO HOME AT THIS TIME, ACCOMPANIED BY FAMILY. DISMISSAL INSTRUCTIONS REVIEWED, QUESTIONS ANSWERED. PT EXPRESSES UNDERSTANDING OF DISMISSAL INSTRUCTIONS, INCLUDING BUT NOT LIMITED TO, S/S TO REPORT TO DRKai WELL MEDICATION REGIMEN. PT EXPRESSES UNDERSTANDING OF MONITORING BGMs, WELL LOGGING BGMs AND BRINGING RECORD WITH HER TO APPOINTMENT WITH DR. SHEIKH. FOLLOW-UP APPOINTMENTS SCHEDULED, PT EXPRESSES UNDERSTANDING. PRESCRIPTION FOR LAB ON 01/24 SENT WITH PT, PT EXPRESSES UNDERSTANDING. IV DC'D, BELONGINGS GATHERED.
--- NOTE | 2017-01-21 18:01 | NUR ---
PRESCRIPTIONS PRESCRIPTIONS FOR REGLAN AND METFORMIN HCL CALLED IN ORDERED TO PREFERRED PHARMACY, PHARMACIST LEANN. NO CONCERNS AT THIS TIME.
== END 2017-01-21 18:00 | disposition home or self-care (01) ==
LOC: ED 08:36 → EDHOLD 11:22 → MED 11:54
PROVIDERS: ADMIT Internal Medicine; ATTEND Hospitalist
DX: E11.65 Type 2 diabetes mellitus with hyperglycemia (principal); E87.6 Hypokalemia; R11.2 Nausea with vomiting, unspecified; R19.7 Diarrhea, unspecified; E86.0 Dehydration; E80.6 Other disorders of bilirubin metabolism; F41.9 Anxiety disorder, unspecified; R01.1 Cardiac murmur, unspecified; E66.9 Obesity, unspecified; Z68.32 Body mass index [BMI] 32.0-32.9, adult; G43.909 Migraine, unspecified, not intractable, without status migrainosus; E78.00 Pure hypercholesterolemia, unspecified; Z91.14 Patient's other noncompliance with medication regimen; T38.3X6A Underdosing of insulin and oral hypoglycemic [antidiabetic] drugs, initial encounter; Z91.128 Patient's intentional underdosing of medication regimen for other reason; Y92.018 Other place in single-family (private) house as the place of occurrence of the external cause; Z87.440 Personal history of urinary (tract) infections; K76.0 Fatty (change of) liver, not elsewhere classified
CPT/HCPCS: 36415; 74177; 76705; 80053; 81003; 81025; 82248; 82607; 82948; 83036; 83690; 83735; 84443; 84484; 85025; 93005; 96361; 96365; 96366; 96372; 96375; 96376; 99218; 99284; J1170; J1815; J1885; J2405; J3010; J3480; J7030; J7050; Q9967; 80069